=== PATIENT | female | born 1990 | race Caucasian/White ===

== ENCOUNTER 2018-01-01 06:56 | Emergency (ER) | payer MEDICAID, SELFPAY ==
[2018-01-01 06:57] VITALS: BP 106/72; PULSE 100; RESP 20; TEMP 36.4; O2SAT 98; BMI 27.3
--- NOTE | 2018-01-01 07:02 | US_ITS ---
STUDY: ABDOMINAL ULTRASOUND - RIGHT UPPER QUADRANT REASON FOR VISIT: Female, 27 years old. Generalized abdominal pain for 3 days. TECHNIQUE: Ultrasound evaluation of the right upper quadrant was performed with real-time and static anderson-scale imaging. TECHNICAL QUALITY: Adequate. COMPARISON: None. FINDINGS: Liver: The liver measures 13.8 cm. There is normal echogenicity of the liver. The bile ducts are within normal limits. There is hepatic color flow. The direction of portal flow is hepatopetal. There is no demonstrated mass lesion. Gallbladder: Normal distended gallbladder. The gallbladder wall measures 2.9 mm. There is a negative sonographic Henson's sign. There is no pericholecystic fluid. There are no gallstones. Common Bile Duct (C.B.D.): The common bile duct measures 3.6 mm. Pancreas: Normal size of the head, body and tail of the pancreas. There is normal echogenicity of the pancreas. There is no demonstrated pancreatic mass or cyst. Right Kidney: Normal size of the right kidney. The right kidney measures 9.7 x 4.4 x 5.2 cm. Normal renal cortex. The right cortex measures 1.5 cm. There is no demonstrated renal mass or cyst. There is no right hydronephrosis. US/Gallbladder IMPRESSION: Normal right upper quadrant ultrasound examination. Electronically Signed: Krishan Loja MD at 8:27 EDT Tel , Service support ,
--- NOTE | 2018-01-01 07:06 | ED.DCSUM_ITS ---
- ER Visit Summary Date of Service: 01/01/18 Chief Complaint: Abdominal pain History of Present Illness: The patient is a 27 F presents to the emergency department with abdominal pain. Patient's been having symptoms intermittently for the past 3-4 days. States that she will have cramping pain across her upper abdomen. It does seem to be made worse with eating. States that she wakes up with the pain and will be nauseated. Today, she had 2 episodes of vomiting. She states throughout the day, the pain will subside, when she eats again the pain returned. She denies any fevers or chills. She has no prior history of abdominal surgery. She states she has never had pain like this before. There has been no change in bowel habits. She has not found anything that improves the symptoms. Physical Examination: Vital signs reviewed General: Well-nourished, well-developed Head: Normocephalic, atraumatic Eyes: Pupils equal and reactive, extraocular muscles intact Neck, supple, no lymphadenopathy Heart: Regular rate and rhythm Respiratory: No distress, clear bilaterally Abdomen: Soft, mildly tender in the midepigastric area without rebound or guarding, nondistended, no peritoneal signs Back: Nontender Extremities: Nontender, no edema, no cords Skin: Normal color no rash Neuro: Alert and oriented, no focal or lateralizing deficits Test Results: [] Emergency Department Course and Treatment: The patient was tender in the midepigastric area into the right upper quadrant. She did not have a definitive Henson sign. She has been having intermittent pain that was worse with eating. His symptoms were concerning for biliary colic versus gastritis. I did obtain screening labs which are unremarkable. Patient was treated with morphine and Zofran. She had complete resolution of her pain. I did obtain an ultrasound. Her gallbladder does appear to be normal. There is no significant gallbladder wall thickening or dilation of the common bile duct. She was negative. Urine does show some blood, but the patient is currently on her menses. She did have a slight return of her nausea and was retreated with Zofran. At this time, I do feel that this is more likely gastroenteritis. She has begun to have some loose watery diarrhea. I am going to treat the patient with Bentyl and Zofran at home. She continues to have a benign abdomen. She will be discharged home. Treatment Plan: [] Disposition: Discharge Impression: 1. Gastroenteritis 2. Midepigastric abdominal pain This note was generated with [employer] dictation software. It may contain incorrect words, spelling, and punctuation that were not noted in review of the chart prior to signing ED Disposition - Plan for ED Patient: Chief Complaint: Abd Pain Instructions: ED PUD Vs Gastritis Prescriptions: Ondansetron [Zofran Odt] 4 mg PO Q8H PRN PRN #10 tab PRN Reason: Nausea Dicyclomine HCl [Bentyl] 20 mg PO TIDAC #20 cap Referrals: Laxmi Padilla MD [COURTESY STAFF PHYSICIAN] -
[2018-01-01] MEDS: 0.9% Normal Saline 1,000 ML 1000 ML IV (07:10)
[2018-01-01] MEDS: Morphine 4 MG/ML Syringe IV (07:11)
[2018-01-01] MEDS: Ondansetron 4 MG/2 ML Vial IV ×2 (07:11→08:39)
[2018-01-01 07:20] LABS: Absolute Lymphocyte Count 2.95 X10^3/ul (0.83-4.51); Absolute Neutrophil Count 4.2 X10^3/uL (2.0-7.7); Basophil# 0.03 X10^3/uL; Basophil% 0.4 % (0-1); Eosinophil# 0.09 X10^3/uL; Eosinophils% 1.2 % (0-5); Hematocrit 44.1 % (37-47); Hemoglobin 14.6 g/dl (12.0-15.0); Lymphocyte # 2.95 X10^3/ul (4.0); Lymphocyte % 37.9 % (19-41); Mean Corp Hgb Conc 33.1 g/gl (32-36); Mean Corpuscular Hgb 28.3 pg (27.0-32.0); Mean Corpuscular Volume 85.5 fL (81-99); Mean Platelet Vol. 10.6 fl (6.2-12.0); Monocyte# 0.55 X10^3/uL; Monocyte% 7.1 % (0-10); Neutrophil # 4.16 X10^3/uL (2.7-7.7); Neutrophil % 53.3 % (47-70); POSITIVE COUNT NO; POSITIVE DIFFERENTIAL NO; POSITIVE MORPHOLOGY NO; Platelet Count 322 K/mm3 (150-450); RBC Distribution Width CV 13.9 % (11.6-14.6); RBC Distribution Width SD 43.2 fl (35.1-43.9); Red Blood Count 5.16 M/mm3 (4.2-5.4); White Blood Count 7.8 K/mm3 (4.4-11.0)
[2018-01-01 07:33] LABS: AST(SGOT) 11 U/L (15-37); Alanine Aminotransfer ALT/SGPT 14 U/L (13-56); Albumin, Serum 4.6 g/dL (3.2-5.0); Alkaline Phosphatase 80 U/L (45-117); Anion Gap 5 (5-15); BUN 12 mg/dL (7-18); BUN/Creat Ratio 12.9 RATIO (10-20); Bilirubin, Direct 0.07 mg/dL (0.00-0.30); Calcium,Total 9.7 mg/dL (8.5-10.1); Chloride 107 mmol/L (98-107); Creatinine, Serum 0.93 mg/dL (0.55-1.02); EST Glomerular Filtration Rate 77 mL/min (>60); Est Glom Filt Rate - Afr Amer 93 mL/min (>60); Globulin 4.5 g/dL (2.2-4.2); Glucose 79 mg/dL (74-106); Lipase 287 U/L (73-393); Potassium 3.8 mmol/L (3.5-5.1); Protein, Total 9.1 g/dL (6.4-8.2); Sodium Level 137 mmol/L (136-145)
[2018-01-01 08:21] LABS: Bacteria 0 SEEN /hpf (None Seen); Mucous, Urine 0 SEEN /hpf (<or=2+); White Blood Cells 0 SEEN /hpf (0-5)
[2018-01-01 08:22] LABS: Glucose, Dipstick Normal (Normal); Ketone-Dipstick Negative (Negative); Nitrite-Dipstick Negative (Negative); Occult Blood-Urine 250 /ul (Negative); Protein-Dipstick Negative (Negative); Urine Bilirubin Dipstick Negative (Negative); Urine Urobilinogen Normal (Normal); Urine pH 6.5 (5.0 - 8.0)
[2018-01-01 08:25] LABS: Color, Urine Yellow (Yellow); Urine Clarity Clear (Clear)
[2018-01-01 08:30] LABS: Leukocyte Esterase-Dipstick 25 /ul (Negative)
[2018-01-01 08:31] LABS: Internal QC Validated? YES +Cl - CLEAR BKGD; Pregnancy, Urine Negative Negative
[2018-01-01 08:38] LABS: Red Blood Cells-Urine 0-5 SEEN /hpf (0-5); Squamous Epithelial Cells - UA 0-5 SEEN /hpf (5-10)
== END 2018-01-01 08:49 | disposition home or self-care (01) ==
PROVIDERS: Emergency Provider Emergency Medicine
DX: K52.9 Noninfective gastroenteritis and colitis, unspecified (principal); R10.13 Epigastric pain
CPT/HCPCS: 76705; 80048; 80076; 81001; 81025; 83690; 85025; 96361; 96374; 96375; 96376; 99284; J7030; A4216; J2405

== ENCOUNTER → 2018-06-14 16:53 | Outpatient (CLI) | payer MEDICAID, SELFPAY ==
[2018-06-14 17:25] LABS: Absolute Lymphocyte Count 2.66 X10^3/ul (0.83-4.51); Absolute Neutrophil Count 9.7 X10^3/uL (2.0-7.7); Basophil# 0.04 X10^3/uL; Basophil% 0.3 % (0-1); Eosinophil# 0.08 X10^3/uL; Eosinophils% 0.6 % (0-5); Hematocrit 37.1 % (37-47); Hemoglobin 12.6 g/dl (12.0-15.0); Lymphocyte # 2.66 X10^3/ul (4.0); Lymphocyte % 20.1 % (19-41); Mean Corpuscular Hgb 29.6 pg (27.0-32.0); Mean Corpuscular Volume 87.3 fL (81-99); Monocyte# 0.76 X10^3/uL; Monocyte% 5.7 % (0-10); Neutrophil # 9.66 X10^3/uL (2.7-7.7); Neutrophil % 73.1 % (47-70); Platelet Count 297 K/mm3 (150-450); RBC Distribution Width CV 13.6 % (11.6-14.6); RBC Distribution Width SD 42.4 fl (35.1-43.9); Red Blood Count 4.25 M/mm3 (4.2-5.4); White Blood Count 13.2 K/mm3 (4.4-11.0)
[2018-06-14 17:26] LABS: POSITIVE COUNT NO; POSITIVE DIFFERENTIAL NO; POSITIVE MORPHOLOGY NO
[2018-06-14 20:56] LABS: Chlamydia Trachomatis by PCR Negative (Negative); Neisserai gonorrhoeae by PCR Negative (Negative); Probe Check PASS; Sample Adequacy Control PASS; Specimen Processing Control PASS
[2018-06-15 09:39] LABS: HIV - WCH Non-Reactive (Nonreactive)
[2018-06-16 13:45] LABS: HEPATITIS B SURFACE AG Negative (Negative)
[2018-06-17 02:59] LABS: Rapid Plasmin Reagin (RPR) NONREACTIVE (NONREACTIVE)
[2018-06-17 10:20] LABS: HPV Reflexed? NOT INDICATED
== END ==
PROVIDERS: Referring Provider Obstetrics & Gynecology; Visit Provider Obstetrics & Gynecology
DX: Z34.90 Encounter for supervision of normal pregnancy, unspecified, unspecified trimester (principal); Z12.4 Encounter for screening for malignant neoplasm of cervix
CPT/HCPCS: 36415; 85025; 86592; 86703; 86762; 86850; 86900; 87086; 87088; 87340; 87491; 87591; 88175; G0145

== ENCOUNTER 2018-07-31 15:18 | Emergency (ER) | payer MEDICAID, SELFPAY ==
[2018-07-31 15:19] VITALS: BP 112/75; PULSE 98; RESP 18; TEMP 36.3; O2SAT 100; BMI 25.6
[2018-07-31] MEDS: Acetaminophen 325 MG Tablet 650 MG PO (15:41)
--- NOTE | 2018-07-31 15:47 | ED.DCSUM_ITS ---
- ER Visit Summary Date of Service: 07/31/18 Chief Complaint: [Back pain] History of Present Illness: The patient is a 27 F [ presents the emergency department complaint that started today around 10 AM. Patient states that she had lifted in place for 1-year-old and a walker when the pain became severe.] P atient states the pain is from the mid back down to the low back across the entire back. Pain is made worse by moving. She denies any radiation into her legs. Patient denies any numbness or tingling in extremities. She denies any change in bowel or bladder function. Patient denies any fever. Patient is currently 13 weeks and she is . She denies any vaginal bleeding. She denies any dysuria. Patient has had an ultrasound with this which did show an intrauterine . Physical Examination: [HEENT-PERRLA, EOMI. Cranial nerves II through XII grossly intact. TMs clear. Mucous membranes moist. No adenopathy. Cardiovascular-regular rate and rhythm without murmur or ectopy Lungs-clear to auscultation, chest wall stable without crepitus or subcu emphysema Abdomen-normoactive bowel sounds, soft, nontender, no rebound or rigidity, no peritoneal signs. Back exam-patient has diffuse tenderness to palpation over the lower thoracic an d diffuse lumbar paraspinal musculature bilaterally. Deep tendon reflexes are plus 2 out of 4 bilaterally at the patella and Achilles. Patient has normal L5 extension bilaterally. Patient has normal sensation to light touch. Extremities-intact ?4, normal range of motion, normal pulses, atraumatic] Test Results: [Urinalysis obtained at 500 leukocyte esterase, 10-25 WBCs, 10-25 epis, and +1 bacteria. Urine was sent for culture. heart tones were 150.] Emergency Department Course and Treatment: [Patient was medicated with Tylenol and Flexeril as well as Macrobid.] Treatment Plan: [Patient will be started on Flexeril and Macrobid and advised to follow-up with her [employer] within next 5-7 days.] Disposition: [Discharged home in stable condition. Patient advised to return if fever, vomiting, worsening pain, weakness in extremities, change of bowel or bladder function, or condition should worsen anyway.] Impression: [Lumbar strain UTI] This note was generated with [employer] software. It may contain incorrect words, spelling, and punctuation that were not noted in review of the chart prior to signing ED Disposition - Plan for ED Patient: Chief Complaint: Back Referrals: Care Physician,No Primary [Primary Care Provider] -
[2018-07-31 16:17] LABS: Mucous, Urine 0 SEEN /hpf (<or=2+); Red Blood Cells-Urine 0 SEEN /hpf (0-5)
[2018-07-31 16:22] LABS: Color, Urine Yellow (Yellow); Glucose, Dipstick Normal (Normal); Ketone-Dipstick Negative (Negative); Leukocyte Esterase-Dipstick 500 /ul (Negative); Nitrite-Dipstick Negative (Negative); Occult Blood-Urine 25 /ul (Negative); Protein-Dipstick 15 mg/dl (Negative); Specific Gravity, Urine 1.025 (1.002-1.030); Urine Bilirubin Dipstick Negative (Negative); Urine Clarity Sl. Cloudy (Clear); Urine Urobilinogen 1 mg/dl (Normal)
[2018-07-31 16:31] LABS: Squamous Epithelial Cells - UA 10-25 SEEN /hpf (5-10); White Blood Cells 10-25 SEEN /hpf (0-5)
[2018-07-31 16:32] LABS: Bacteria 1+ /hpf (None Seen)
--- NOTE | 2018-07-31 16:37 | ED.DEP ---
ED Disposition - Plan for ED Patient: Chief Complaint: Back Instructions: ED Sprain Strain Lumbar, ED UTI Cystitis Female Prescriptions: Nitrofurantoin Macrocrystals [Macrobid] 100 mg PO Q12 #14 cap Cyclobenzaprine [Flexeril] 10 mg PO TID PRN #20 tab PRN Reason: Muscle Spasm Referrals: Care Physician,No Primary [Primary Care Provider] - Julia Wyatt MD [STAFF PHYSICIAN] - 5-7 Days
[2018-07-31] MEDS: Nitrofurantoin Macrocrystals 100 MG Capsule PO (16:45)
== END 2018-07-31 16:47 | disposition home or self-care (01) ==
LOC: ED 15:37
PROVIDERS: Emergency Provider Emergency Medicine
DX: O9A.211 Injury, poisoning and certain other consequences of external causes complicating pregnancy, first trimester (principal); Z3A.13 13 weeks gestation of pregnancy; S39.012A Strain of muscle, fascia and tendon of lower back, initial encounter; X50.9XXA Other and unspecified overexertion or strenuous movements or postures, initial encounter; Y93.9 Activity, unspecified; Y92.9 Unspecified place or not applicable; O23.41 Unspecified infection of urinary tract in pregnancy, first trimester
CPT/HCPCS: 81001; 87086; 87088; 99283

== ENCOUNTER → 2018-11-07 09:25 | Outpatient (CLI) | payer MEDICAID, SELFPAY ==
[2018-11-07 09:22] VITALS: BMI 27.8
[2018-11-07 10:13] LABS: Absolute Lymphocyte Count 1.51 X10^3/ul (0.83-4.51); Absolute Neutrophil Count 5.9 X10^3/uL (2.0-7.7); Basophil# 0.03 X10^3/uL; Basophil% 0.4 % (0-1); Eosinophil# 0.04 X10^3/uL; Eosinophils% 0.5 % (0-5); Hemoglobin 10.7 g/dl (12.0-15.0); Lymphocyte # 1.51 X10^3/ul (4.0); Lymphocyte % 18.9 % (19-41); Mean Corp Hgb Conc 32.4 g/gl (32-36); Mean Corpuscular Hgb 29.3 pg (27.0-32.0); Mean Corpuscular Volume 90.4 fL (81-99); Mean Platelet Vol. 10.1 fl (6.2-12.0); Monocyte# 0.51 X10^3/uL; Monocyte% 6.4 % (0-10); Neutrophil # 5.86 X10^3/uL (2.7-7.7); Neutrophil % 73.5 % (47-70); Platelet Count 261 K/mm3 (150-450); RBC Distribution Width CV 13.6 % (11.6-14.6); RBC Distribution Width SD 43.7 fl (35.1-43.9); Red Blood Count 3.65 M/mm3 (4.2-5.4)
[2018-11-07 10:14] LABS: POSITIVE COUNT NO; POSITIVE DIFFERENTIAL NO; POSITIVE MORPHOLOGY NO
[2018-11-07 10:19] LABS: Glucose Challenge Gest 1H 50g 83 mg/dL (70-140)
== END ==
PROVIDERS: Visit Provider Nurse Practitioner Women's Health
DX: O09.90 Supervision of high risk pregnancy, unspecified, unspecified trimester (principal)
CPT/HCPCS: 36415; 82950; 85025

== ENCOUNTER 2018-12-19 09:47 | Outpatient (CLI) | payer MEDICAID, SELFPAY ==
[2018-12-19 09:33] VITALS: BMI 27.8
--- NOTE | 2018-12-19 10:06 | US_ITS ---
STUDY: OBSTETRICAL ULTRASOUND - BIOPHYSICAL PROFILE REASON FOR EXAM: Female, 28 years old. well-being. LMP: April 19, 2018 PRIOR ULTRASOUND: None. TECHNIQUE: TECHNICAL QUALITY: Adequate. FINDINGS: There is a single intrauterine fetus. The fetus is in a cephalic presentation. There is demonstrated cardiac activity with a heart rate of 136 bpm. There is a normal amniotic fluid volume. The largest amniotic fluid pocket measures 5.0 cm x 2.6 cm. The amniotic fluid index (DAVID) is 14.01 cm. The placenta is anterior in location and is not low lying. There are Grade 0 placental changes. BIOPHYSICAL PROFILE: Breathing Movements (FBM): 0 Gross Body Movements (GBM): 2 Tone (FT): 2 Amniotic Fluid Volume (AFV): 2 TOTAL SCORE: 6 / 8 US/Biophysical Profile IMPRESSION: biophysical profile of 6/8. The referring physician's office was notified. Electronically Signed: Indio Paris, at 15:30 EDT , Service support ,
[2018-12-19 10:17] VITALS: BMI 32.0
--- NOTE | 2018-12-19 14:23 | OB.TRI.PN ---
Progress Notes Date of Service: 12/19/18 Progress Note: patient seent due to variable decel in the office fhts 130s moderate variability reactive no decels cat I tracing toco no regular a/p: variable decel- 6/8 BPP 2 off for breathing, reactive nst. dc home kick counts repeat bpp in 24 hours.
== END 2018-12-19 12:15 | disposition home or self-care (01) ==
LOC: WPOUT 10:02 → OBT 10:02
PROVIDERS: Referring Provider Obstetrics & Gynecology; Visit Provider Obstetrics & Gynecology
DX: O76 Abnormality in fetal heart rate and rhythm complicating labor and delivery (principal)
CPT/HCPCS: 59025; 59050; 76818; 99218; G0378

== ENCOUNTER → 2018-12-20 | Outpatient (CLI) | payer MEDICAID, SELFPAY ==
[2018-12-19 10:17] VITALS: BMI 32.0
--- NOTE | 2018-12-20 14:35 | US_ITS ---
STUDY: OBSTETRICAL ULTRASOUND - BIOPHYSICAL PROFILE REASON FOR EXAM: Female, 28 years old. well being. LMP: April 19, 2018. PRIOR ULTRASOUND: Comparison is made with prior examination dated December 19, 2018. TECHNIQUE: Transabdominal TECHNICAL QUALITY: Adequate. FINDINGS: There is a single intrauterine fetus. The fetus is in a cephalic presentation. There is demonstrated cardiac activity with a heart rate of 142 bpm. There is a normal amniotic fluid volume. The largest amniotic fluid pocket measures 2.7 cm x 6.4 cm. The amniotic fluid index (DAVID) is 12.07 cm. The placenta is There are Grade 0 placental changes. BIOPHYSICAL PROFILE: Breathing Movements (FBM): 2 Gross Body Movements (GBM): 2 Tone (FT): 2 Amniotic Fluid Volume (AFV): 2 TOTAL SCORE: US/Biophysical Prof W/O Non Stres IMPRESSION: Normal biophysical profile of 04/20. Electronically Signed: Indio Paris, at 11:24 EDT , Service support ,
== END | disposition home or self-care (01) ==
LOC: US 14:34
PROVIDERS: Referring Provider Obstetrics & Gynecology; Visit Provider Obstetrics & Gynecology
DX: O36.8390 Maternal care for abnormalities of the fetal heart rate or rhythm, unspecified trimester, not applicable or unspecified (principal)
CPT/HCPCS: 76819

== ENCOUNTER → 2018-12-27 18:17 | Outpatient (CLI) | payer MEDICAID, SELFPAY ==
[2018-12-27 10:43] VITALS: BMI 32.0
== END ==
PROVIDERS: Referring Provider Obstetrics & Gynecology; Visit Provider Obstetrics & Gynecology
DX: O09.90 Supervision of high risk pregnancy, unspecified, unspecified trimester (principal); Z87.59 Personal history of other complications of pregnancy, childbirth and the puerperium
CPT/HCPCS: 87081

== ENCOUNTER → 2019-01-11 | Outpatient (CLI) | payer MEDICAID, SELFPAY ==
[2019-01-11 11:03] VITALS: BMI 32.0
[2019-01-11 12:29] LABS: Absolute Neutrophil Count 8.1 X10^3/uL (2.0-7.7); Basophil# 0.02 X10^3/uL; Basophil% 0.2 % (0-1); Eosinophil# 0.05 X10^3/uL; Eosinophils% 0.5 % (0-5); Hematocrit 31.9 % (37-47); Hemoglobin 10.1 g/dl (12.0-15.0); Lymphocyte % 18.2 % (19-41); Mean Corp Hgb Conc 31.7 g/gl (32-36); Mean Corpuscular Hgb 26.8 pg (27.0-32.0); Mean Corpuscular Volume 84.6 fL (81-99); Mean Platelet Vol. 10.9 fl (6.2-12.0); Monocyte# 0.83 X10^3/uL; Monocyte% 7.5 % (0-10); Neutrophil # 8.05 X10^3/uL (2.7-7.7); Neutrophil % 73.1 % (47-70); Platelet Count 330 K/mm3 (150-450); RBC Distribution Width SD 45.2 fl (35.1-43.9); Red Blood Count 3.77 M/mm3 (4.2-5.4)
[2019-01-11 12:58] LABS: POSITIVE COUNT NO; POSITIVE DIFFERENTIAL NO; POSITIVE MORPHOLOGY NO
== END | disposition home or self-care (01) ==
PROVIDERS: Referring Provider Nurse Practitioner Women's Health; Visit Provider Nurse Practitioner Women's Health
DX: O99.019 Anemia complicating pregnancy, unspecified trimester (principal); D64.9 Anemia, unspecified; Z3A.00 Weeks of gestation of pregnancy not specified
CPT/HCPCS: 36415; 85025

== ENCOUNTER 2019-01-18 12:00 | Inpatient (IN) | payer MEDICAID, SELFPAY ==
[2019-01-17 09:04] VITALS: BMI 32.0
[2019-01-18] MEDS: Lactated Ringers 1,000 ML 50 ML IV ×3 (13:05→15:24)
[2019-01-18 13:10] VITALS: BMI 32.5
[2019-01-18 13:23] LABS: Absolute Lymphocyte Count 1.87 X10^3/ul (0.83-4.51); Absolute Neutrophil Count 11.7 X10^3/uL (2.0-7.7); Basophil# 0.02 X10^3/uL; Basophil% 0.1 % (0-1); Eosinophil# 0.05 X10^3/uL; Eosinophils% 0.3 % (0-5); Hematocrit 32.3 % (37-47); Hemoglobin 10.3 g/dl (12.0-15.0); Lymphocyte # 1.87 X10^3/ul (4.0); Mean Corp Hgb Conc 31.9 g/gl (32-36); Mean Corpuscular Hgb 26.7 pg (27.0-32.0); Mean Corpuscular Volume 83.7 fL (81-99); Mean Platelet Vol. 10.4 fl (6.2-12.0); Monocyte# 0.68 X10^3/uL; Monocyte% 4.7 % (0-10); Neutrophil # 11.68 X10^3/uL (2.7-7.7); Neutrophil % 81.6 % (47-70); Platelet Count 309 K/mm3 (150-450); RBC Distribution Width CV 15.2 % (11.6-14.6); Red Blood Count 3.86 M/mm3 (4.2-5.4); White Blood Count 14.4 K/mm3 (4.4-11.0)
[2019-01-18 13:29] LABS: POSITIVE COUNT NO; POSITIVE DIFFERENTIAL NO; POSITIVE MORPHOLOGY NO
[2019-01-18] MEDS: fentaNYL-bupivacaine (epidural) 100 ML BAG EPIDURAL (14:19)
[2019-01-18] MEDS: Oxytocin 30 units/NS 500 ml 30 UNITS/500 ML IV.SOLN 334 UNITS IV (16:02)
--- NOTE | 2019-01-18 16:09 | HP.PCM_ITS ---
- Problem List (1) Active labor at term Status: Acute (2) Anemia affecting Status: Acute Qualifiers: Comment: check at 36 weeks (3) H/O loss Status: Acute Comment: 18 week anhydramnios PPROM, likely nonrecurring, recommend growth us q4 weeks after 28 weeks (4) Status: Acute Qualifiers: Comment: genetic, carrier, and ntd screening declined. MFM anatomy US normal, FU US for cervix length- cervix measured 5 cm. (5) Supervision of high-risk Status: Acute Qualifiers: Comment: PRR ANUPAM 01/24/18 boy Georgina Senior (dominick) Js History and Physical Vital Signs 01/17/19 Body Mass Index (BMI) 32.0 01/17/19 Height 5 ft 4 in 01/17/19 Weight: 191 lb 6 oz 01/17/19 Body Mass Index (BMI) 32.8 01/17/19 Blood Pressure 98/72 Intake Visit Reasons: 39 WK OB/NST Chief Complaint: est ob,nst Shirrer Required: No Is patient in pain?: No Allergies sulfamethoxazole [From Bactrim] Allergy (Verified 01/17/19 09:03) Rash trimethoprim [From Bactrim] Allergy (Verified 01/17/19 09:03) Rash Medications Pnv No.121/Iron/Folic Acid [ Multivitamin Tablet] 1 ea PO DAILY 07/31/18 [History Confirmed 01/17/19] Last Menstral Period: 04/19/18 Zika: Zika virus screening: Negative : No PFSH PFSH Surgical History H/O dilation and curettage (Acute) History of wisdom tooth extraction, class II edentulism (Acute) left breast cyst removal (Acute) Family History Grandmother Diabetes Social History Smoking Status: Former smoker alcohol intake: never substance use type: does not use caffeine: Yes what type of physical activity do you participate in: none seatbelt use: always do you feel safe at home: Yes additional social history: Js works at [employer] in [place] Pregancy History 4 Elective abortions Hx Para 2 Spontaneous abortions Hx # Term Pregnancies Ectopic pregnancies Hx # Pregnancies Multiple births # of living children Past Pregnancies Del. Date Name GA/Weeks Outcome Route Bth Weight Gen Labor Lgth Anesthesia Del Locatn Provider FOB Unknown Js Arauz 2008 live - full term Male Bare Unknown 2016 Georgina live - full term Male TERRELL HPI 39 WK OB/NST: Details: GINI RAMOS is a 28 year old @ 38w6d IAL. she denies any vb or lof admits good fm and regular ctx for the last few hours. ACOG First Trimester First Trimester: Second Trimester Second Trimester: Signs and Symptoms of Labor, Selecting a care provider, Reproductive Life Planning, Care Planning, Tobacco Cessation, Depression/Anxiety and Intimate Partner Violence Third Trimester Third Trimester: Pain Management Plans, Labor support person(s), Immediate Larc, Movement Monitoring and Infant Feeding Yes ; discussed Trial of Labor after Counseling or discussed Circumcision pre ference Diagnostics Diagnostics Labs Hct 31.9 % (37-47) L 01/11/19 Hgb 10.1 g/dl (12.0-15.0) L 01/11/19 Details: HIV: Urine Culture: Sequential Screen: NIPT Screen: ROS Const Reports system reviewed and no additional complaints, except as docu Card Reports system reviewed and no additional complaints, except as docu Resp Reports system reviewed and no additional complaints, except as docu GI Reports system reviewed and no additional complaints, except as docu, Reports nausea Reports system reviewed and no additional complaints, except as docu Musc Reports system reviewed and no additional complaints, except as docu Exam Const General: cooperative, healthy appearing, comfortable, anxious [facility] Head: normal to inspection Nose: external nose normal Face and sinus: normal facial exam Neck Neck: normal visual inspection, full ROM, no lymphadenopathy Thyroid: thyroid normal Chest Chest palpation & inspection: normal inspection of the chest Resp Effort & Inspection: normal respiratory effort GI Inspection: normal to inspection Palpation: soft, other (gravid uterus) Other: infant vertex and appropriate size for gestational age Other: Cervical Exam: Extrem General: pedal edema Office Procedures OB NST Non-Stress Test Indications for Monitoring: Yes other Heart Rate Baseline: 130 Heart Rate Variability: moderate Movement: Present Heart Rate Accelerations: Present Decelerations: Absent Contractions: Absent Impression: Yes Reactive Non-Stress Test Category 1 Results [id number] Office Urine Glucose Negative Last Edit by Sadia Vaz on 01/17/19 09:09 Office Urine Protein Negative Last Edit by Sadia Vaz on 01/17/19 09:09 Assessment & Plan Problems term active labor 5. H/O loss Z87.59 6. 39 weeks gestation of Z3A.39 7. Supervision of high risk in third trimester O 8. Anemia affecting in third trimester O99.013 Plan presents IAL- exp management epidural PRN Orders Orders: OB NST Today O POC Urinalysis 2 Dip (Clinic) Today Plan Detail Goals Decrease pain and spasm Improve ability to carry child and climb stairs Coding Level of Care Code Off vis,est,level 3 Diagnoses Segmental and somatic dysfunction of thoracic region M99.02 Segmental and somatic dysfunction of pelvic region M99.05 Segmental and somatic dysfunction of sacral region M99.04 Segmental and somatic dysfunction of lumbar region M99.03 H/O loss Z87.59 39 weeks gestation of Z3A.39 ??Weeks of gestation: 39 weeks Supervision of high risk in third trimester O ??Trimester: third trimester Anemia affecting in third trimester O99.013 ??Trimester: third trimester Additional Codes Non-Stress Test (13913)
--- NOTE | 2019-01-18 16:09 | PCM.OPRPT ---
Problem List (1) Active labor at term Status: Acute (2) Anemia affecting Status: Acute Qualifiers: Comment: check at 36 weeks (3) H/O loss Status: Acute Comment: 18 week anhydramnios PPROM, likely nonrecurring, recommend growth us q4 weeks after 28 weeks (4) Status: Acute Qualifiers: Comment: genetic, carrier, and ntd screening declined. MFM anatomy US normal, FU US for cervix length- cervix measured 5 cm. (5) Supervision of high-risk Status: Acute Qualifiers: Comment: PRR ANUPAM 01/24/18 boy Georgina Senior (dominick) Js Vaginal Delivery Maternal Presentation: Active Labor 38w6d IAL Amniotic Membrane Rupture Type: Spontaneous Amniotic Fluid Description: Clear Final ANUPAM: 01/26/19 Gestational age: 38 Weeks and 6 Days Date of Procedure: 01/18/19 Pre-Operative Diagnosis: ial Post-Operative Diagnosis: same Surgery/ Procedure Performed: Spontaneous Vaginal Delivery Type of Anesthesia: Epidural Description of Procedure: Patient began pushing and delivered the head in the JUAN DAVID presentation. The head was delivered atraumatically. The anterior and posterior shoulders delivered without complication followed by the rest of the and the infant was placed on the maternal abdomen. Delayed cord clamping was employed for approximately 60 seconds. Cord was clamped and cut and gentle traction was applied to the cord and the placenta delivered spontaneously immediately following it was noted to be intact with three-vessel cord. The perineum and vagina were inspected and noted to have first-degree perineal laceration that was repaired in the usual fashion with 3-0 Vicryl repeat. EBL was 100 cc. Patient and tolerated delivery well. Presentation: JUAN DAVID Placental Delivery Description: Spontaneous Placenta Disposition: [facility] Cord Vessel Description: 3 Vessels Cord Entanglement: None Estimated Blood Loss: 100 Infant A gender: Male Episiotomy Description: None Laceration: Perineal Extension/lac, 1st degree Medications given after delivery: IV Pitocin Complications: None
[2019-01-18] MEDS: Oxytocin 30 units/NS 500 ml 30 UNITS/500 ML IV.SOLN 167 UNITS IV (16:32)
[2019-01-18 19:25] VITALS: BP 114/62; PULSE 113; RESP 16; TEMP 36.8
[2019-01-18 23:05] VITALS: BP 118/62; PULSE 78; RESP 18; TEMP 36.2; O2SAT 98
[2019-01-18] MEDS: Naproxen 250 MG Tablet 500 MG PO (23:25)
[2019-01-19 03:00] VITALS: BP 94/58; PULSE 80; RESP 18; TEMP 36.5
[2019-01-19] MEDS: Acetaminophen 500 MG Tablet 1000 MG PO (04:36)
[2019-01-19] MEDS: Senna/Docusate Sodium 1 Tablet PO (04:37)
--- NOTE | 2019-01-19 07:29 | PCM.PN.OB ---
Patient Problems: Active and Suspected Problems (Last Reviewed 01/17/19 @ 09:04 by Sadia Vaz) Active labor at term (Acute) Subjective: doing well no complaints pain controlled no CP SOB N V ambulating well tolerating po lochia moderate, going well - Physical Exam General: Alert, Oriented x3 Abdomen: Soft, Non Tender, - - FF below U Vital Signs Temp Pulse Resp BP Pulse Ox 97.7 F L 80 18 94/58 L 98 01/19/19 03:00 01/19/19 03:00 01/19/19 03:00 01/19/19 03:00 01/18/19 23:05 Oxygen Delivery Method Room Air Weight: 190 lb Body Mass Index (BMI) 32.5 Intake and Output for Last 24 Hours 01/17/19 01/18/19 01/19/19 23:59 23:59 23:59 Intake Total 2660 / 2660 Output Total 1500 / 1500 Balance 1160 / 1160 Laboratory Tests Past 24 Hrs 01/18/19 01/18/19 12:25 13:05 WBC 14.4 H RBC 3.86 L Hgb 10.3 L Hct 32.3 L MCV 83.7 MCH 26.7 L MCHC 31.9 L RDW 15.2 H RDW Differential 46.0 H Plt Count 309 MPV 10.4 Immature Gran % (Auto) 0.300 Neut % (Auto) 81.6 H Lymph % (Auto) 13.0 L Mitchell % (Auto) 4.7 Eos % (Auto) 0.3 Baso % (Auto) 0.1 Absolute Neuts (auto) 11.7 H Absolute Lymphs (auto) 1.87 Total Counted Not Reportable Blood Type A POSITIVE Antibody Screen NEGATIVE Medical Necessity - Tobacco Use Smoking Status: Former smoker Assessment/Plan All Active Problems (Last Reviewed 01/17/19 @ 09:04 by Sadia Vaz) Active labor at term (Acute) Segmental and somatic dysfunction of thoracic region (Acute) Anemia affecting (Acute) Segmental and somatic dysfunction of pelvic region (Acute) Segmental and somatic dysfunction of sacral region (Acute) Segmental and somatic dysfunction of lumbar region (Acute) H/O loss (Acute) (Acute) Supervision of high-risk (Acute) Normal delivery at term (Resolved) s/p PPD # 1 1. routine post delivery care 2. breast feeding- support given 3. rh positive 4. rubella immune
[2019-01-19 08:50] VITALS: BP 100/52; PULSE 70; RESP 14; TEMP 36.6; O2SAT 98
[2019-01-19] MEDS: Naproxen 250 MG Tablet 500 MG PO ×2 (10:10→19:41)
[2019-01-19] MEDS: Prenatal Vits Tablet 1 TABLET PO (10:11)
[2019-01-19 11:38] VITALS: BP 106/50; PULSE 80; RESP 16; TEMP 36.8
[2019-01-19 17:33] VITALS: BP 104/64; PULSE 72; RESP 16; TEMP 36.6
[2019-01-19 19:42] VITALS: BP 103/53; PULSE 77; RESP 16; TEMP 36.8
[2019-01-20 03:10] VITALS: BP 92/37; PULSE 69; RESP 15; TEMP 36.7; O2SAT 98
[2019-01-20 08:57] VITALS: BP 107/49; PULSE 91; RESP 16; TEMP 36.7
--- NOTE | 2019-01-20 10:32 | CASEMGMT ---
Social Work Assessment Labor and Delivery Unit Date of Referral: 01/20/19 Time of Referral: 9:44am Referred By: Dr. Wyatt Date of Intervention: 01/20/19 Time of Intervention: 10:05am Reason for Referral: History of Depression History Obtained from: MOB and FOB Household composition: MOB, FOB, siblings Caesar Arauz(born 2008) and Georgina(born 2017), Baby will sleep in room w/parents initially in playpen w/insert. Baby's parent/guardian status: MOB and FOB, Js and Abigail Walters, are the parents. They have been together since high school, they state 15-16 years. Relevant Medical history: MOB: high risk , anemia, h/o loss. Appropriate care. No tox screen completed on this admission. Baby: Born 01/18/19, 15:58, 7 lb 2 oz, apgars 8(1 minute) and 9(5 minutes). No tox screen completed. Baby's pictures editor will be Dr. Rebolledo, MOB set up appt on Wednesday. Educational Status: MOB graduated high school, FOB has GED. 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 Infant supplies: MOB and FOB report to have all needed supplies including diapers, clothing, bottles, car seats, pack n play with insert. Childcare/Caregivers/Support systems: MOB plans to stay home, MOB and FOB report a lot of support on both sides including baby's grandparents, aunts and uncles. Transportation: No transportation issues Programs/Agencies involved: [facility] Children Services/Legal Issues: None Behavioral Health Issues: Mental Health history: MOB reports depression after of their first child in 2008. She relates it to more having difficulty breast feeding. FOB states she felt like she was feeling badly about herself and ability to parent because of this. MOB reports this lasted only for a couple of weeks. MOB reports no history of depression otherwise, no recurrences of after Georgina in 2016. MOB did not seek any counseling for the at the time of the occurrence. Substance Abuse/Family history: No history reported by MOB or FOB in regard to substance abuse of any type. FOB reports that grandfathers on either side have difficulty w/alcohol so MOB and FOB don't even go there, as they are aware of their family history. Drug screens: Not ordered Depression and Anxiety/Shaken Baby/Safe Sleeping: SW reviewed with and gave information on depression/anxiety, shaken baby and safe sleeping to MOB. SW also gave MOB resources for counseling should she need it, including the 24 hour hotline to call if needed. Assessment: SW met w/MOB and FOB in room, reviewed history, in particular history around depression. SW gave MOB resources for depression, list of mental health agencies w/24 hour hotline number. MOB reports to be feeling good, reports no depression at this time. SW did review w/MOB and FOB warning signs of and advised her if she or FOB starts to see these warning signs, to follow up w/PCP or w/counseling. MOB and FOB state understanding. MOB during conversation, attentive to baby and also engaged in conversation, good eye contact. FOB also engaged in conversation. Both MOB and FOB very appropriate. No concerns at this time. Plan: Baby home w/parents, MOB has resources for depression if needed. No further needs at this time. MARÍA Palomo
--- NOTE | 2019-01-20 12:02 | PCM.PN.OB ---
Patient Problems: Active and Suspected Problems (Last Reviewed 01/17/19 @ 09:04 by Sadia Vaz) Active labor at term (Acute) Subjective: doing well no complaints pain controlled no CP SOB N V ambulating well tolerating po lochia moderate, going well - Physical Exam General: Alert, Oriented x3 Vital Signs Temp Pulse Resp BP Pulse Ox 98.1 F 91 16 107/49 L 98 01/20/19 08:57 01/20/19 08:57 01/20/19 08:57 01/20/19 08:57 01/20/19 03:10 Oxygen Delivery Method Room Air Weight: 190 lb Body Mass Index (BMI) 32.5 Intake and Output for Last 24 Hours 01/18/19 01/19/19 01/20/19 23:59 23:59 23:59 Intake Total 2660 / 2660 Output Total 1500 / 1500 Balance 1160 / 1160 Medical Necessity - Tobacco Use Smoking Status: Former smoker Assessment/Plan All Active Problems (Last Reviewed 01/17/19 @ 09:04 by Sadia Vaz) Active labor at term (Acute) Segmental and somatic dysfunction of thoracic region (Acute) Anemia affecting (Acute) Segmental and somatic dysfunction of pelvic region (Acute) Segmental and somatic dysfunction of sacral region (Acute) Segmental and somatic dysfunction of lumbar region (Acute) H/O loss (Acute) (Acute) Supervision of high-risk (Acute) Normal delivery at term (Resolved) s/p PPD # 2 1. routine post delivery care 2. breast feeding- support given 3. rh positive 4. rubella immune
--- NOTE | 2019-01-20 12:03 | DCINST_ITS ---
Discharge Diet: No Restrictions Discharge Activity: Return to Normal Activity, May not drive while taking narcotic pain medications., May Shower May resume sexual activity in: 4-6 weeks Call your doctor if your incision/area has: Continuous Slow Oozing, Sudden Increased Bleeding, Increased Pain/ Swelling, Increased Redness, Foul Smelling Discharge Additional Instructions: If you experience any of the following, contact your healthcare provider. * Bleeding that soaks a pad every hour for 2 hours * Fever 100.4 or higher * Unrelieved incision or abdominal pain * Swelling, redness, discharge or bleeding from your incision or episiotomy site * Your incision begins to separate * Problems urinating (including inability to urinate or burning while urinating). * Visual changes * Severe headache * Flu-like symptoms * Pain or redness in one of both of your breasts * Pain, warmth, tenderness or swelling in your legs, especially the calf area * Frequent nausea and vomiting * Symptoms of depression or anxiety If you experience any of the following, call 911 or go to the nearest Emergency Room. * Chest pain * Problems breathing * Seizure activity * Partial or complete paralysis of a body part, slurred speech, weakness or drooping of the face, or a sudden inability to walk or hold your balance Allergies/Adverse Reactions: Allergies sulfamethoxazole [From Bactrim] Allergy (Verified 01/17/19 09:03) Rash trimethoprim [From Bactrim] Allergy (Verified 01/17/19 09:03) Rash Medications to take at Discharge Pnv No.121/Iron/Folic Acid [ Multivitamin Tablet] 1 ea PO DAILY 07/31/18 Please Follow Up With: Julia Wyatt MD - [phone] When: Call to make an appointment with your doctor in 6 weeks. If you had elevated Blood pressure or 4th degree laceration you will need to be seen in 2 weeks. Primary Care Physician: Care Physician,No Primary [Primary Care Provider] - Test Results: Test results from this visit will be discussed in further detail at your follow- up appointment, if applicable.
--- NOTE | 2019-01-20 12:03 | PCM.DCVAG ---
Discharge Diet: No Restrictions Discharge Activity: Return to Normal Activity, May not drive while taking narcotic pain medications., May Shower May resume sexual activity in: 4-6 weeks Call your doctor if your incision/area has: Continuous Slow Oozing, Sudden Increased Bleeding, Increased Pain/ Swelling, Increased Redness, Foul Smelling Discharge Additional Instructions: If you experience any of the following, contact your healthcare provider. Bleeding that soaks a pad every hour for 2 hours Fever 100.4 or higher Unrelieved incision or abdominal pain Swelling, redness, discharge or bleeding from your incision or episiotomy site Your incision begins to separate Problems urinating (including inability to urinate or burning while urinating). Visual changes Severe headache Flu-like symptoms Pain or redness in one of both of your breasts Pain, warmth, tenderness or swelling in your legs, especially the calf area Frequent nausea and vomiting Symptoms of depression or anxiety If you experience any of the following, call 911 or go to the nearest Emergency Room. Chest pain Problems breathing Seizure activity Partial or complete paralysis of a body part, slurred speech, weakness or drooping of the face, or a sudden inability to walk or hold your balance Allergies/Adverse Reactions: Allergies sulfamethoxazole [From Bactrim] Allergy (Verified 01/17/19 09:03) Rash trimethoprim [From Bactrim] Allergy (Verified 01/17/19 09:03) Rash Medications to take at Discharge Pnv No.121/Iron/Folic Acid [ Multivitamin Tablet] 1 ea PO DAILY 07/31/18 Please Follow Up With: Julia Wyatt MD - [phone] When: Call to make an appointment with your doctor in 6 weeks. If you had elevated Blood pressure or 4th degree laceration you will need to be seen in 2 weeks. Primary Care Physician: Care Physician,No Primary [Primary Care Provider] - Test Results: Test results from this visit will be discussed in further detail at your follow-up appointment, if applicable.
--- NOTE | 2019-01-25 18:51 | NURSING ---
Tried follow up phone call, phone number not a working number.
== END 2019-01-20 12:45 | disposition home or self-care (01) | DRG 560 ==
PROVIDERS: Admitting Provider Obstetrics & Gynecology; Referring Provider Obstetrics & Gynecology; Visit Provider Obstetrics & Gynecology
DX: O99.02 Anemia complicating childbirth (principal); D64.9 Anemia, unspecified; M99.03 Segmental and somatic dysfunction of lumbar region; M99.05 Segmental and somatic dysfunction of pelvic region; M99.04 Segmental and somatic dysfunction of sacral region; M99.02 Segmental and somatic dysfunction of thoracic region; Z3A.38 38 weeks gestation of pregnancy; Z37.0 Single live birth; Z87.891 Personal history of nicotine dependence; O70.0 First degree perineal laceration during delivery
CPT/HCPCS: 59025; 59050; 85025; 86850; 86900; 99218; J7120; G0378

== ENCOUNTER 2019-03-30 06:07 | Day surgery (SDC) | payer MEDICAID, SELFPAY ==
[2019-03-23 17:42] VITALS: BMI 32.5
--- NOTE | 2019-03-24 04:10 | PCM.HPOB.BLA ---
- Problem List (1) Sterilization Status: Acute Comment: laparoscopic bilateral salpingectomy History and Physical Date of Admission: 03/30/19 Intake Vital Signs 03/23/19 Body Mass Index (BMI) 32.5 03/23/19 Height 5 ft 4 in 03/23/19 Weight: 140 lb 8 oz 03/23/19 Body Mass Index (BMI) 24.1 03/23/19 Blood Pressure 116/76 Intake Visit Reasons: pre op LBS Saw Edge Fuser Circular Required: No Is patient in pain?: No Allergies sulfamethoxazole [From Bactrim] Allergy (Verified 03/23/19 17:21) Rash trimethoprim [From Bactrim] Allergy (Verified 03/23/19 17:21) Rash Medications NK 03/02/19 [History Confirmed 03/23/19] Post menopausal: No Patient : No : No PFSH Surgical History H/O dilation and curettage (Acute) History of wisdom tooth extraction, class II edentulism (Acute) left breast cyst removal (Acute) Family History Grandmother Diabetes Social History (Updated 03/24/19 @ 03:02 by Julia Wyatt MD) Smoking Status: Former smoker alcohol intake: never substance use type: does not use caffeine: Yes what type of physical activity do you participate in: none seatbelt use: always do you feel safe at home: Yes additional social history: Js works at [employer] in [facility] pre op LBS: Details: GINI RAMOS is a 28 year old who presents for sterilization preop appointment. Female Reproductive History Menopausal Symptoms: No night sweats Pregancy History 4 Elective abortions Hx Para 3 Spontaneous abortions Hx # Term Pregnancies Ectopic pregnancies Hx # Pregnancies Multiple births # of living children 3 Past Pregnancies Del. Date Name GA/Weeks Outcome Route Bth Weight Gen Labor Lgth Anesthesia Del Locatn Provider FOB Unknown Js Arauz 2008 live - full term Male Bare Unknown 2016 Georgina live - full term Male [facility] 01/18/19 Marleny 38 live - full term 7lbs ?oz Male epidural [facility] ROS Const Constitutional: Denies fatigue, night sweats, weight gain or weight loss ENT ENT: Reports system reviewed and no additional complaints, except as docu Cardio Card: Denies chest pain Resp Resp: Denies cough or dyspnea GI GI: Reports as per HPI; denies abdominal pain, constipation, nausea or vomiting : Denies nipple discharge, urinary frequency, urinary incontinence, urinary hesitancy, urinary urgency, vaginal discharge, vaginal dryness, vaginal odor or vaginal itching Musc Musc: Denies joint pain, back pain or muscle weakness Skin Skin/Breast: Denies hair loss, change in hair, dry skin, breast lump, breast pain, breast skin changes or nipple discharge Neuro Neuro: Reports system reviewed and no additional complaints, except as docu Psych Psych: Reports system reviewed and no additional complaints, except as docu Endo Endo: Denies cold intolerance, excessive sweating, heat intolerance or increased thirst Mj/Lymph Hematologic/Lymphatic: Denies easy bleeding, Denies easy bruising, Denies enlarged lymph nodes Exam Const General: cooperative, healthy appearing, comfortable, no acute distress, well developed Orientation: alert [facility] Head: normal to inspection, normocephalic Ears: hearing grossly normal bilaterally, external ears normal Nose: external nose normal, nares normal Face and sinus: normal facial exam Neck Neck: normal visual inspection, no lymphadenopathy Thyroid: thyroid normal Chest Chest palpation & inspection: normal inspection of the chest Resp Effort & Inspection: normal respiratory effort Auscultation: clear to auscultation bilaterally Cardio Rate: regular rate Rhythm: regular rhythm Heart Sounds: S1 normal, S2 normal GI Inspection: normal to inspection, non-distended Palpation: soft, no hepatosplenomegaly General: bladder normal to palpation External Female Exam: normal external appearance, normal appearance of the urethra Urethra: normal appearance of the urethra, normal palpation, no discharge Speculum Exam - Vagina: normal appearance of the vagina, normal vaginal discharge Speculum Exam - Cervix: normal appearance of the cervix, nontender Bimanual Exam- Vagina & Uterus: normal bimanual exam, uterine size normal, bladder normal to palpation, uterine shape normal, No cervical tenderness, uterine mobility normal, uterine consistency normal, normal cervical palpation, uterus non-tender Bimanual Exam- Adnexa, other: normal adnexae, adnexae mobile, no adnexal masses, pelvic support normal Pelvic Support: normal Musc Other: gross motor intact no deficits, full bilateral strength Skin General: no rashes or lesions noted Neuro General: alert, awake, moves all extremities, no focal motor deficits Motor: muscle tone normal throughout Extrem General: normal to inspection, no pedal edema Psych Appearance: grossly normal Mental Status: mental status grossly normal Affect: normal affect Speech and Movement: speech and movement normal Assessment & Plan Problems 1. Sterilization Z30.2 laparoscopic bilateral salpingectomy Plan discussed surgical risks including risks of anesthesia, infection, bleeding, injury to bowel, bladder or blood vessels, and patient wishes to proceed with surgery. Plan Detail Goals Decrease pain and spasm Improve ability to carry child and climb stairs Coding Level of Care Code No Charge Diagnoses Sterilization Z30.2 UPDATE- I have seen the patient and performed any clinically relevant updates to the history and physical exam. Julia Wyatt MD
--- NOTE | 2019-03-30 | FALS_PTH ---
PATIENT: GINI RAMOS [place] [facility] [place][id number] AGE/SX: 28/F ROOM: RE03/30/[address]: Dr. Julia Wyatt MD : 1990 BED: DIS: 03/30/2019 SPEC #: [id number] RECD: 03/30/19 14:33 STATUS: JOAN REParish #: [id number] MORRIS: 03/30/19 00:[address]: Julia Wyatt DEPT: SURGICAL PATHOLOGY RECD BY: Huey Duval ENTERED: 03/30/19 14:33 SP TYPE: FALL TUBES OTHR DR: No Primary Care Phys Tissues: Fallopian tube Procedures: Surgery Specimen Level II HEADER OPERATION: Laparoscopic salpingectomy PRE-OP DIAGNOSIS: Desired sterilization TISSUE SUBMITTED: Fallopian tubes MICROSCOPIC DIAGNOSIS Bilateral fallopian tubes, salpingectomy Bilateral fallopian tubes including fimbrial ends, no pathologic diagnosis. BAMBI:nicolas 03/31/19 MICROSCOPIC DESCRIPTION Slides are reviewed. GROSS DESCRIPTION Received is one container labeled with the patient's name and designated bilateral fallopian tubes. The specimen consists of two fallopian tubes with an average length of 5.5 cm and has an average diameter of 0.6 cm. Both fallopian tubes have normal fimbriated ends. No mass lesions are identified. Diazo Technician sections are submitted in two cassettes as follows: 1 - one fallopian tube, 2 - the other fallopian tube. / AM:nicolas 03/30/19 TC:4 CPT: 55832 x2
[2019-03-30 06:33] LABS: Internal QC Validated? YES +Cl - CLEAR BKGD; Pregnancy, Urine Negative Negative
[2019-03-30 06:44] VITALS: BMI 29.3
[2019-03-30 06:51] LABS: Hematocrit 38.6 % (37-47); Hemoglobin 12.4 g/dL (12.0-15.0); Mean Corp Hgb Conc 32.1 g/dL (32-36); Mean Corpuscular Hgb 27.1 pg (27.0-32.0); Mean Corpuscular Volume 84.5 fL (81-99); Mean Platelet Vol. 10.8 fl (6.2-12.0); Platelet Count 262 K/mm3 (150-450); RBC Distribution Width CV 15.1 % (11.6-14.6); RBC Distribution Width SD 46.1 fl (35.1-43.9); Red Blood Count 4.57 M/mm3 (4.2-5.4); White Blood Count 7.8 K/mm3 (4.4-11.0)
--- NOTE | 2019-03-30 07:52 | PCM.OPRPT ---
Problem List (1) Sterilization Status: Acute Comment: laparoscopic bilateral salpingectomy Report of Operation Date of Procedure: 03/30/19 Pre-Operative Diagnosis: sterilization Post-Operative Diagnosis: same Surgery/Procedure Performed:: laparoscopic bilateral salpingectomy Description of Surgical Findings:: normal uterus tubes ovaries, soft technical healthcare consultant: Jessica Catherine Type of Anesthesia:: General Special Medications: none Specimen's removed: tubes Drains: none Estimated Blood Loss (mL): 75 Fluids Replaced: crystalloid Description of Procedure: Patient was taken in the operating room and was placed under general anesthesia was prepped and draped in normal sterile fashion in the dorsal lithotomy position. Bladder was drained of clear urine and SCDs were on preoperatively. Uterus was sounded and a uterine manipulator was placed after dilating. Attention was then paid to the abdominal portion of the procedure and the umbilicus was elevated with towel clamps and injected with Marcaine and after a 5 mm incision was made and the Veress needle was entered into the abdomen confirmed to be intra-abdominal with a low opening pressure of less than 5 mmHg. Abdomen was insufflated with CO2 gas and a 5 mm optical trocar was placed under direct visualization. A left lower quadrant 5 mm port and a 5 mm port suprapubically replaced under direct visualization. Uterus was well visualized and bilateral fallopian tubes identified and bilateral tubes were elevated and transecting across the mesosalpinx and the attachment to the uterine corpus bilaterally and some bleeding was noted foxily on the uterus on the left side which was cauterized with the LigaSure and Billie placed over the area. The cul-de-sac was partially suctioned out and no active bleeding was noted. The tubes were removed without complication. Excellent hemostasis was noted. Fallopian tubes were removed through the lower port sites without complication. Liver and upper abdomen were visualized notably within normal limits and no other gross abnormalities were seen in the abdomen. All instruments removed from the abdomen after gas was desufflated. Port sites were closed with 3-0 Monocryl Steri's and op sites were applied. All instruments removed from the vagina and patient was awoken and taken recovery in stable condition. Grafts/Implants Used: none - Complications none - Admit VTE Documentation VTE Present on Admission: No
--- NOTE | 2019-03-30 07:53 | DCINST_ITS ---
Discharge Diet: No Restrictions - Increase fluid intake for the next 48 hours. Discharge Activity: Return to Normal Activity, May Drive - when you are no longer taking narcotic pain medications., May Shower, May Take a Tub Bath - in 7 days Additional Activity Instructions:: Ambulate often the next week after surgery. Nothing in the vagina for 5 days. Call your doctor if your incision/area has: Continuous Slow Oozing, Sudden Increased Bleeding, Increased Pain/ Swelling, Increased Redness, Foul Smelling Discharge Call your doctor if you observe: Fever of 101 or Higher Allergies/Adverse Reactions: Allergies sulfamethoxazole [From Bactrim] Allergy (Verified 03/23/19 17:21) Rash trimethoprim [From Bactrim] Allergy (Verified 03/23/19 17:21) Rash Medications to take at Discharge NK 03/02/19 Primary Care Physician: Care Physician,No Primary [Primary Care Provider] - Test Results: Test results from this visit will be discussed in further detail at your follow- up appointment, if applicable. Please Follow Up With: Julia Wyatt MD - [phone]
[2019-03-30] MEDS: Bupivacaine 0.25% 30 ML Vial (08:20)
[2019-03-30 08:38] VITALS: BP 109/59; PULSE 87; RESP 16; TEMP 36.2; O2SAT 100
[2019-03-30 08:45] VITALS: BP 101/72; PULSE 82; RESP 18; O2SAT 100
[2019-03-30 09:00] VITALS: BP 85/48; PULSE 70; RESP 16; O2SAT 94
[2019-03-30 09:15] VITALS: BP 85/47; PULSE 66; RESP 16; O2SAT 95
[2019-03-30 09:30] VITALS: BP 97/56; PULSE 63; RESP 16; O2SAT 100
[2019-03-30 09:45] VITALS: BP 102/69; PULSE 74; RESP 16; TEMP 36.1; O2SAT 98
== END 2019-03-30 11:09 | disposition home or self-care (01) ==
LOC: SDC 06:08 → AC 06:09
PROVIDERS: Referring Provider Obstetrics & Gynecology; Visit Provider Obstetrics & Gynecology
PROC: (CPT 58661; principal; 2019-03-30 07:15)
DX: Z30.2 Encounter for sterilization (principal); Z87.891 Personal history of nicotine dependence
CPT/HCPCS: 00840; 58661; 36415; 81025; 85027; 86850; 86900; 88302; J7120; J2405

== ENCOUNTER 2022-08-11 09:29 | Outpatient (CLI) | payer MEDICAID, SELFPAY ==
[2022-08-11 10:41] LABS: hCG Titer Quant., Serum 4419 mIU/mL (1-3)
== END 2022-08-11 23:59 | disposition home or self-care (01) ==
LOC: PAVLAB 09:31
PROVIDERS: Referring Provider Nurse Practitioner Women's Health; Visit Provider Nurse Practitioner Women's Health
DX: N91.2 Amenorrhea, unspecified (principal)
CPT/HCPCS: 36415; 84702

== ENCOUNTER 2022-08-11 17:01 | Outpatient (CLI) | payer MEDICAID, SELFPAY ==
--- NOTE | 2022-08-11 17:05 | US_ITS ---
We are attempting to reach an attending provider to discuss findings. An addendum with communication details will be sent when the communication is complete. STUDY: FIRST TRIMESTER OBSTETRICAL ULTRASOUND REASON FOR EXAM: Female, 31 years old viability -- STAT LMP: June 23, 2022. TECHNIQUE: Transabdominal and Transvaginal TECHNICAL QUALITY: Adequate. PRIOR ULTRASOUND: None. FINDINGS: There is no demonstrated intrauterine gestational sac. There is no demonstrated yolk sac. The placenta is non-visualized. There is no demonstrated embryo ( pole). The estimated gestation age (EGA) by LMP is 7 weeks, 0 days. The estimated date of delivery (ANUPAM) by LMP is March 30, 2023. The uterus measures 94 x 6.3 x 5.4 cm. There is no demonstrated uterine fibroid. The cervix is closed. The right ovary measures 3.6 x 2.4 x 2.3 cm. There is adjacent 1.5 cm hypoechoic mass with Doppler blood flow seen. The left ovary measures 1.9 x 1.8 x 1.4 cm. There is 1.6 cm hypoechoic cystic region. There is mild fluid in the cul de sac. US/Transvaginal w/Preg US IMPRESSION: No intrauterine gestation seen. Hypoechoic mass in the right adnexal region with possible ectopic gestation. Free fluid in the pelvis. Electronically Signed: James Mcknight MD at 18:33 EST ,
== END 2022-08-11 23:59 | disposition home or self-care (01) ==
LOC: US 17:01
PROVIDERS: Visit Provider Nurse Practitioner Women's Health
DX: O36.80X0 Pregnancy with inconclusive fetal viability, not applicable or unspecified (principal)
CPT/HCPCS: 76817

== ENCOUNTER 2022-08-11 18:00 | Observation (INO) | payer MEDICAID, SELFPAY ==
[2022-08-11] VITALS (10 sets, daily range): BP systolic 90–112; BP diastolic 50–70; PULSE 78–99; RESP 16–18; TEMP 36.2–36.6; O2SAT 94–100; BMI 25.1; BMI 26.1
--- NOTE | 2022-08-11 18:58 | EDS_ITS ---
HPI HPI - Female History of Present Illness Chief Complaint: Informant: patient Narrative Narrative: Patient is a G5, P3 with last menstrual period on June 23 presenting with concern for ectopic . Patient had tubal ligation performed 3 years ago. She had a positive home test and had an ultrasound today which was concerning for ectopic . Her quant earlier today was 4419. Patient was sent over to the ER to obtain lab work and consult for OB. Patient denies any vaginal bleeding, urinary symptoms, abdominal discomfort, nausea or vomiting. No other complaints at this time. Ultrasound shows no intrauterine gestation but hypoechoic mass in the right adnexal region concerning for possible ectopic and free fluid in the pelvis. PFSH PFSH Home Medications naproxen 250 mg tablet 500 mg PO Q8H PRN PRN Mild Pain #30 TABLETS 08/11/22 [Rx Last Taken Unknown] oxycodone-acetaminophen 5 mg-325 mg tablet (Percocet) 1 tab PO Q6H PRN pain 3 days #12 tabs 08/11/22 [Rx Last Taken Unknown] Allergy/AdvReac Type Severity Reaction Status Date / Time sulfamethoxazole Allergy Rash Verified 08/11/22 18:04 [From Bactrim] trimethoprim [From Bactrim] Allergy Rash Verified 08/11/22 18:04 Family History Grandmother Diabetes Surgical History H/O bilateral salpingectomy H/O dilation and curettage History of wisdom tooth extraction, class II edentulism left breast cyst removal Social History Smoking Status: Current every day smoker tobacco type: e-cigarettes alcohol intake: never substance use type: does not use caffeine: Yes what type of physical activity do you participate in: none seatbelt use: always do you feel safe at home: Yes additional social history: Js works at [employer] in [place] ROS ROS ED Constitutional Constitutional ED: Denies chills or fever(s) Eyes Eyes: Denies blurry vision ENT ENT ED: Denies sore throat Cardiovascular Cardiovascular: Denies chest pain or palpitations Respiratory/Chest Respiratory/Chest: Denies cough Gastrointestinal Gastrointestinal: Denies abdominal pain or nausea Genitourinary Genitourinary ED: Denies dysuria, hematuria or urinary frequency Musculoskeletal Musculoskeletal: Denies arthralgias or myalgias Integumentary Denies rash Neurologic Neurologic: Denies headache(s) or weakness Hematologic/Lymphatic Hematologic/Lymphatic: Reports easy bruising; Denies easy bleeding EXAM Physical Exam Const Vital Signs: 08/11/22 18:01 08/11/22 19:54 08/11/22 21:36 Temperature 97.1 F L 97.1 F L 97.7 F L Temperature Source Temporal Temporal Temporal Pulse Rate 88 88 96 Respiratory Rate 16 16 16 Respiratory Pattern Normal Blood Pressure 102/69 102/69 112/61 Blood Pressure Mean 80 80 78 Blood Pressure Source Monitor Blood Pressure Position Semi-Fowlers Blood Pressure Location Left Arm Baseline BP 102/69 Pulse Ox 100 100 100 Oxygen Delivery Method Room Air Room Air Room Air 08/11/22 21:45 08/11/22 22:00 08/11/22 22:15 Temperature Temperature Source Pulse Rate 89 85 86 Respiratory Rate 16 16 16 Respiratory Pattern Blood Pressure 90/50 L 104/70 103/62 Blood Pressure Mean 63 81 75 Blood Pressure Source Monitor Monitor Monitor Blood Pressure Position Semi-Fowlers Semi-Fowlers Semi-Fowlers Blood Pressure Location Left Arm Left Arm Left Arm Baseline BP 102/69 102/69 102/69 Pulse Ox 100 100 96 Oxygen Delivery Method Room Air Room Air Room Air 08/11/22 22:30 08/11/22 22:45 Temperature Temperature Source Pulse Rate 97 99 Respiratory Rate 16 18 Respiratory Pattern Blood Pressure 96/69 95/61 Blood Pressure Mean 78 72 Blood Pressure Source Monitor Monitor Blood Pressure Position Semi-Fowlers Semi-Fowlers Blood Pressure Location Left Arm Left Arm Baseline BP 102/69 102/69 Pulse Ox 94 98 Oxygen Delivery Method Room Air Room Air Positive well nourished and well developed General Appearance ED: well developed and NAD HEENT Reports moist mucous membranes Eyes PERRL and EOMs intact bilaterally Neck supple Chest Wall inspection of chest normal and palpation of chest normal Resp normal respiratory effort and clear to auscultation bilaterally Cardio regular rate and regular rhythm GI normal to inspection, nondistended, normoactive bowel sounds and soft to palpation Palpation: Negative for guarding or rigid Back/Spine no CVA tenderness Extremity normal to inspection and full ROM Neuro oriented x3 Motor Exam: Negative for general weakness Psych Mood & Affect: tearful Skin no rashes or lesions noted and no wounds MDM MDM MDM Narrative Medical decision making narrative: Patient is evaluated for concern for ectopic . She had tubal ligation. Quant is 4400 and she had an ultrasound concerning for ectopic in the right adnexa. CBC, CMP and type and screen ordered per recommendation of VICE PRESIDENT OF SOFTWARE DEVELOPMENT. Discussed with Dr. Mtz who will evaluate the patient in the ER. IV fluids are started. Patient is currently hemodynamically stable and pain- free. Patient evaluated by VICE PRESIDENT OF SOFTWARE DEVELOPMENT in the ER. Will be taken to the OR for laparoscopic treatment of ectopic . Remains hemodynamically stable in the ER. Lab Data Labs: Laboratory Results - last 24 hr 08/11/22 08/11/22 08/11/22 18:42 18:42 19:03 WBC RBC Hgb Hct MCV MCH MCHC RDW Std Deviation RDW Coeff of Bianca Plt Count MPV Immature Gran % (Auto) Neut % (Auto) Lymph % (Auto) [place] % (Auto) Eos % (Auto) Baso % (Auto) Absolute Neuts (auto) Absolute Lymphs (auto) Nucleated RBC % Sodium 140 Potassium 3.5 Chloride 110 H Carbon Dioxide 22.0 Anion Gap 8 BUN 11 Creatinine 0.65 Estim Creat Clear Calc 107.30 Est GFR (MDRD) Af Amer 136 Est GFR (MDRD) Non-Af 112 BUN/Creatinine Ratio 17.0 Glucose 83 Calcium 8.8 Total Bilirubin 0.30 AST 14 L ALT 22 Alkaline Phosphatase 44 L Total Protein 7.3 Albumin 3.8 Globulin 3.5 Albumin/Globulin Ratio 1.1 Blood Type Cancelled A POSITIVE A1 Antigen Typing Cancelled Rho(D) Type Cancelled Antibody Screen Cancelled NEGATIVE 08/11/22 19:15 WBC 12.3 H RBC 4.13 L Hgb 12.7 Hct 37.3 MCV 90.3 MCH 30.8 MCHC 34.0 RDW Std Deviation 42.4 RDW Coeff of Bianca 12.9 Plt Count 279 MPV 11.2 Immature Gran % (Auto) 0.200 Neut % (Auto) 74.4 H Lymph % (Auto) 18.9 L [place] % (Auto) 5.5 Eos % (Auto) 0.7 Baso % (Auto) 0.3 Absolute Neuts (auto) 9.1 H Absolute Lymphs (auto) 2.32 Nucleated RBC % 0 Sodium Potassium Chloride Carbon Dioxide Anion Gap BUN Creatinine Estim Creat Clear Calc Est GFR (MDRD) Af Amer Est GFR (MDRD) Non-Af BUN/Creatinine Ratio Glucose Calcium Total Bilirubin AST ALT Alkaline Phosphatase Total Protein Albumin Globulin Albumin/Globulin Ratio Blood Type A1 Antigen Typing Rho(D) Type Antibody Screen Discharge Plan Dx/Rx/DC Orders Clinical Impression: Ectopic Disposition Disposition: Acute Care Hospital [facility] Discharge Date/Time: 08/11/22 20:04
[2022-08-11] MEDS: 0.9% Normal Saline 1,000 ML 999 ML IV (19:15)
[2022-08-11 19:22] LABS: Absolute Lymphocyte Count 2.32 X10^3/uL (0.83-4.51); Absolute Neutrophil Count 9.1 X10^3/uL (2.0-7.7); Basophil# 0.04 X10^3/uL; Basophil% 0.3 % (0-1); Eosinophil# 0.08 X10^3/uL; Eosinophils% 0.7 % (0-5); Hematocrit 37.3 % (37-47); Hemoglobin 12.7 g/dL (12.0-15.0); Lymphocyte # 2.32 X10^3/ul (0.83-4.51); Lymphocyte % 18.9 % (19-41); Mean Corpuscular Hgb 30.8 pg (27.0-32.0); Mean Corpuscular Volume 90.3 fL (81-99); Mean Platelet Vol. 11.2 fl (6.2-12.0); Monocyte# 0.67 X10^3/uL; Monocyte% 5.5 % (0-10); NRBC Flagged by Analyzer 0 % (0-5); Neutrophil # 9.11 X10^3/uL (2.7-7.7); Neutrophil % 74.4 % (47-70); Platelet Count 279 K/mm3 (150-450); RBC Distribution Width CV 12.9 % (11.6-14.6); RBC Distribution Width SD 42.4 fl (35.1-43.9); Red Blood Count 4.13 M/mm3 (4.2-5.4); White Blood Count 12.3 K/mm3 (4.4-11.0)
[2022-08-11 19:24] LABS: ALB/GLOB Ratio 1.1 RATIO (0.9-2.4); AST(SGOT) 14 U/L (15-37); Alanine Aminotransfer ALT/SGPT 22 U/L (13-56); Albumin, Serum 3.8 g/dL (3.2-5.0); Alkaline Phosphatase 44 U/L (45-117); Anion Gap 8 (5-15); BUN 11 mg/dL (7-18); Calcium,Total 8.8 mg/dL (8.5-10.1); Chloride 110 mmol/L (98-107); Creatinine, Serum 0.65 mg/dL (0.55-1.02); EST Glomerular Filtration Rate 112 mL/min (>60); Est Glom Filt Rate - Afr Amer 136 mL/min (>60); Globulin 3.5 g/dL (2.2-4.2); Glucose 83 mg/dL (74-106); Potassium 3.5 mmol/L (3.5-5.1); Protein, Total 7.3 g/dL (6.4-8.2); Sodium Level 140 mmol/L (136-145)
--- NOTE | 2022-08-11 20:00 | FAL_PTH ---
PATIENT: GINI RAMOS LOC: MS3 U#:[id number] AGE/SX: 31/F ROOM: MS319 RE08/11/[address]: Dr. Bettina Iglesias DO : 1990 BED: 1 DIS: 08/12/2022 SPEC #: [id number] RECD: 08/12/22 07:17 STATUS: JOAN ROS #: [id number] MORRIS: 08/11/22 20:[address]: Bettina Iglesias DEPT: SURGICAL PATHOLOGY RECD BY: Zenobia Altamirano ENTERED: 08/12/22 09:08 SP TYPE: ECTOPIC OTHR DR: No Primary Care Phys Tissues: A - ECTOPIC PREG B - Fallopian tube Procedures: Surgery Specimen Level IV HEADER OPERATION: Laparoscopic removal ectopic PRE-OP DIAGNOSIS: Ectopic TISSUE SUBMITTED: A ? Right ovary, B ? Broad ligament mass MICROSCOPIC DIAGNOSIS A. Right ovary, oophorectomy: Follicular and corpus luteal cysts. Corpora albicantia. B. Broad ligament mass, biopsy: Chorionic villi, decidualized tissue and trophoblastic cells consistent with products of conception. AM:nicolas 08/13/2022 MICROSCOPIC DESCRIPTION Slides are reviewed. GROSS DESCRIPTION A - Received in fixative is one container labeled with the patient's name and designated right ovary. The specimen consists of two irregular fragments of pink-yellow soft tissue ranging in size from 2.2 to 4 cm. Serial sections reveal multiple cysts ranging in size from 0.2 to 1.5 cm and contain clear fluid. Laundrette Owner sections are submitted in two cassettes. B - Received in fixative is one container labeled with the patient's name and designated broad ligament mass. The specimen consists of multiple irregular fragments of dark hunter tissue that in aggregate measure 1.7 x 1 x 0.2 cm. The specimen is totally submitted in one cassette. / AM:nicolas 08/12/2022 TC:5 CPT: 63672 x2
--- NOTE | 2022-08-11 20:10 | PCM.HP.OB ---
HPI - General HPI Narrative GINI RAMOS, is a 31 y/o who presents to [facility] ultrasound to rule out ectopic . She had a positive test at home today despite h/o bilateral slapingectomy in 2019. The quant was 4400 and ultrasound showed the following: FINDINGS: There is no demonstrated intrauterine gestational sac. There is no demonstrated yolk sac. The placenta is non-visualized. There is no demonstrated embryo ( pole). The estimated gestation age (EGA) by LMP is 7 weeks, 0 days.? The estimated date of delivery (ANUPAM) by LMP is March 30, 2023. The uterus measures 94 x 6.3 x 5.4 cm.? There is no demonstrated uterine fibroid.? The cervix is closed. The right ovary measures 3.6 x 2.4 x 2.3 cm.? There is adjacent? 1.5 cm hypoechoic mass with Doppler blood flow seen. The left ovary measures 1.9 x 1.8 x 1.4 cm.? There is 1.6 cm? hypoechoic cystic region. There is mild fluid in the cul de sac. _ Signed ADDENDUM by Dr. James Mcknight MD on 08/11/22 at 1833 US/Transvaginal w/Preg US IMPRESSION: No intrauterine gestation seen. ? Hypoechoic mass in the right adnexal region with possible ectopic gestation. Free fluid in the pelvis. The patient was walked through the algorithm for an ectopic. although the quant is less than 5000 and the mass is less than 4 cm, there is the small possibility of a bilateral ectopic and also some free fluid that could indicate partial rupture already.This makes it relatively contraindicated to treat with MTX alone. pt states that she understands and is ready for surgery. she last ate [id number] am PFSH PFSH Home Medications naproxen 250 mg tablet 500 mg PO Q8H PRN PRN Mild Pain #30 TABLETS 08/11/22 [Rx Last Taken Unknown] oxycodone-acetaminophen 5 mg-325 mg tablet (Percocet) 1 tab PO Q6H PRN pain 3 days #12 tabs 08/11/22 [Rx Last Taken Unknown] Allergy/AdvReac Type Severity Reaction Status Date / Time sulfamethoxazole Allergy Rash Verified 08/11/22 18:04 [From Bactrim] trimethoprim [From Bactrim] Allergy Rash Verified 08/11/22 18:04 Family History Grandmother Diabetes Surgical History H/O bilateral salpingectomy H/O dilation and curettage History of wisdom tooth extraction, class II edentulism left breast cyst removal Social History Smoking Status: Current every day smoker tobacco type: e-cigarettes alcohol intake: never substance use type: does not use caffeine: Yes what type of physical activity do you participate in: none seatbelt use: always do you feel safe at home: Yes additional social history: Js works at [employer] in [place] History 4 Elective abortions Hx Para 3 Spontaneous abortions Hx # Term Pregnancies Ectopic pregnancies Hx # Pregnancies Multiple births # of living children 3 Past Pregnancies Del. Date Name GA/Weeks Outcome Route Bth Weight [facility] Js Arauz 2009 live - full term Male Bare Unknown 2016 live - full term Male TERRELL 01/18/19 Marleny 38 live - full term 7lbs ?oz Male epidural [facility] TERRELL ROS Constitutional Constitutional: Denies change in weight, fatigue, fever(s), headache(s), poor appetite or weakness Eyes Eyes: Denies blurry vision, change in vision, seeing flashes or spots in vision ENT HEENT: Denies dizziness, headache(s), loss taste/smell or sore throat Cardiovascular Cardiovascular: Denies chest pain, dizziness, dyspnea, irregular heart rhythm, leg edema, palpitations, rapid heart rate or vomiting Respiratory/Chest Respiratory/Chest: Denies chest tightness, cough, dyspnea or breast pain Gastrointestinal Gastrointestinal: Denies abdominal pain, anorexia, constipation, cramping, diarrhea, hemorrhoids, vomiting or weight changes Genitourinary Genitourinary: Denies dysuria, flank pain, genital lesions, genital pain, urinary frequency or urinary urgency Musculoskeletal Musculoskeletal: Denies back pain, difficulty walking, joint pain, limited range of motion, muscle cramps or numbness Integumentary Integumentary: Denies lesions or unusual bruising Neurologic Neurologic: Denies abnormal movements, abnormal speech, dizziness, numbness, seizure-like activity or syncope Psychiatric Psychiatric: Denies anxiety, behavioral changes, change in appetite, change in libido, cognitive impairment, confusion, depression, difficulty concentrating, hallucinations or suicidal thoughts Endocrine Endocrinology: Denies excessive sweating, polydipsia or polyuria Hematologic/Lymphatic Hematologic/Lymphatic: Denies easy bleeding, easy bruising or lymphadenopathy Allergic/Immunologic Allergic/Immunologic: Denies itchy eyes, lip swelling, seasonal rhinorrhea, rhinitis, throat swelling, tongue swelling, eczemia, wheezing or asthma Vital Signs Vital Signs Vital Signs: 08/11/22 18:01 08/11/22 19:54 Temperature 97.1 F L 97.1 F L Temperature Source Temporal Temporal Pulse Rate 88 88 Respiratory Rate 16 16 Blood Pressure 102/69 102/69 Blood Pressure Mean 80 80 Pulse Ox 100 100 Oxygen Delivery Method Room Air Room Air Weight Weight: 146 lb 8 oz Body Mass Index (BMI) 25.1 Physical Exam Const alert, oriented x3, no apparent distress and healthy appearing General Appearance: cooperative; Negative for anxious HEENT normocephalic Face and Sinus: normal facial exam Eyes EOMs intact bilaterally and no scleral icterus General Eye: normal appearance of both eyes Neck full ROM and supple Lymph Lymphatic: no lymphadenopathy noted Chest Chest: abnormal inspection of the chest Resp normal respiratory effort Effort and Inspection: able to speak in complete sentences Cardio regular rate GI soft to palpation and non-tender Palpation: soft; Negative for tender Back/Spine no CVA tenderness Extremity normal to inspection, full ROM and no clubbing, cyanosis or edema General Extremity: Negative for calf tenderness or edema Skin Lesions: no lesions Rashes: no rashes Psych mental status grossly normal Labs Labs Labs: Blood Type A POSITIVE Antibody Screen NEGATIVE Hct 37.3 % (37-47) Hgb 12.7 g/dL (12.0-15.0) Obstetrics US Rubella IgG Antibody 34.0 IU/mL Hep Bs Antigen Negative (Negative) HIV 1&2 Antibody Non-Reactive (Nonreactive) Glucose 1 Hr 50 gm 83 mg/dL (70-140) Group B Strep DNA Negative (Negative) Rhogam given: No Miscellaneous Test Assessment & Plan (1) Ectopic : PLAN: right adnexal ectopic with left ovarian cyst present. plan for diagnostic laparoscopy, possible right oophorectomy, possible left salpingectomy, or oophorectomy. After discussing the patient's diagnosis and treatment plan options, patient wishes to proceed with surgical management. I have discussed with the patient the risks, benefits, and alternatives of the procedure which include but are not limited to risks of anesthesia, bleeding, infection, possible damage to bowel, bladder, or surrounding vasculature which could lead to additional surgery to evaluate any complications. Patient agrees to procedure and wishes to proceed. ACOG/uptodate references given for additional information regarding procedure.
[2022-08-11] MEDS: Bupivacaine 0.25% 30 ML Vial (21:27)
--- NOTE | 2022-08-11 21:46 | OP.PCM_ITS ---
Problems Associated Problem List Diagnoses (1) Ectopic : Operative Report Date of Procedure: 08/11/22 preoperative diagnosis: Right adnexal ectopic , hemoperitoneum postoperative diagnosis: right adnexal ectopic , hemoperitoneum surgery: Right oophorectomy and removal of right broad ligament mass Surgeon: Dr. 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 her uterus was empty and the right ovary contained a hypoechoic structure with blood flow present. The patient is status post bilateral salpingectomy after her last child was born. Surgical pathology showed removal to the fimbriated ends. The decision was made to proceed with surgical management of the ectopic. procedure details: Patient was taken in the operating room and was placed under general anesthesia was prepped and draped in normal sterile fashion in the dorsal lithotomy position.? Bladder was drained of clear urine and SCDs were on preoperatively.? Uterus was sounded and a uterine manipulator was placed after dilating.? Attention was then paid to the abdominal portion of the procedure and the umbilicus was injected with 5cc of 25% Marcaine injection. A 5 mm incision was made and a 5 mm trocar was inserted into the abdomen under direct visualization. The Abdomen was insufflated with CO2 gas and the patient was placed in a Trendelenburg position. The right ovary was noted to be enlarged with a 2 cm firm mass. The left ovary appeared normal. A left lower quadrant 5 mm incision and trocar was inserted into the abdomen under direct visualization. Next a mini grasper suprapubic trocar was inserted. The minigrasper was used to elevate the right ovary. Using a LigaSure device, the right infundibulopelvic ligament was stretched slightly to the left and cauterized close to the ovary and inferior where more prevalent blood supply vs mass was noted on the cornual region of the uterus. The specimen containing the ovary and ligament were passed into a 5 mm EndoCatch bag and removed through the 5 mm trocar site. A second look with the laparoscope showed a second bulge of tissue coming from the inferior aspect of the broad ligament in the retroperitoneal space. Careful and further inspection with a curved [place] laparoscopic instrument showed that there was bleeding from this site. the site was carefully opened and tissue was carefully teased out of the 3 mm opening. The tissue resembled chorionic villi. This tissue was passed off for pathology analysis. The tissue site was found to be naturally hemostatic, however because of the location, Floseal was inserted and watched for approximately 5 minutes to ensure further hemostasis. Some blood trickled from the site and then stopped completely. No expansion of blood was noted behind the ligament/retroperitoneal space. At this time the patient was found to be stable to end the surgery. The instruments were removed from the abdomen and the incision were closed with a 4-0 monocryl suture. The vaginal instruments were also removed and no vaginal bleeding was noted. The patient tolerated the procedure well. Sponge, lap, and needle counts were correct x 2 and she is now in recovery room in s table condition. The plan is for her to receive methotrexate IM before decision discharge to home ore floor. Multi Select Codes Urinary/Genital Urinary/Genital CPT Codes: 00508 Laproscopic BS/O
--- NOTE | 2022-08-11 22:06 | DCINST_ITS ---
Discharge Instructions Diet Discharge Diet: No restrictions Activity Discharge Activity: Return to Normal Activity, May Not Drive (for two weeks or while taking narcotic pain medications.), May Shower and May Take a Tub Bath (in 7 days) May resume sexual activity in: 1 week Weight Bearing Status: Full weight bearing Dressing / Incision Call your doctor if you observe: Using more than 1 pad per hour, Shortness of breath, Chest pain and Uncontrolled pain Suture Line Care: Avoid Pulling/Pushing and Avoid Pinching/Bending Remove Dressing in: 1 week (if present) Cleanse incision/area with: Soap & Water and Keep Dressing Clean & Dry Follow Up Care Please Follow Up With: Bettina Iglesias DO When: Call to make an appointment with your doctor for a follow up incision check in 1-2 weeks. Test Results: Test results from this visit will be discussed in further detail at your follow- up appointment, if applicable. Discharge Plan Admission Primary Reason for Your Visit: ectopic Attending Provider: Bettina Iglesias Primary Care Provider: Care Physician,Padmini Primary Discharge Orders/Prescriptions Prescriptions: New naproxen 250 mg tablet 500 mg PO Q8H PRN PRN (Reason: Mild Pain ) Qty: 30 0RF oxycodone-acetaminophen [Percocet] 5-325 mg tablet 1 tab PO Q6H PRN (Reason: pain) 3 Days Qty: 12 0RF Referrals / Follow Up: Care Physician,No Primary [Primary Care Provider] - Disposition Disposition (needs filled in before D/C Order can be placed): Home, Self Care
[2022-08-11] MEDS: Lactated Ringers 1,000 ML 100 ML IV (23:18)
[2022-08-12 01:22] VITALS: BP 96/48; PULSE 78; RESP 16; TEMP 36.5; O2SAT 95
[2022-08-12 03:30] VITALS: BP 97/46; PULSE 78; RESP 16; TEMP 36.5; O2SAT 96
[2022-08-12 05:52] VITALS: BP 93/51; PULSE 80; RESP 16; TEMP 36.9; O2SAT 96
[2022-08-12] MEDS: HYDROcodone Bitartrate/Apap 5/325 Tablet PO (05:57)
[2022-08-12 06:00] VITALS: BP 93/51; PULSE 80; RESP 16; TEMP 36.9; O2SAT 96
[2022-08-12 06:59] LABS: Absolute Lymphocyte Count 0.51 X10^3/uL (0.83-4.51); Absolute Neutrophil Count 9.1 X10^3/uL (2.0-7.7); Basophil# 0.01 X10^3/uL; Basophil% 0.1 % (0-1); Hematocrit 34.2 % (37-47); Hemoglobin 11.9 g/dL (12.0-15.0); Lymphocyte # 0.51 X10^3/ul (0.83-4.51); Lymphocyte % 5.2 % (19-41); Mean Corp Hgb Conc 34.8 g/dL (32-36); Mean Corpuscular Hgb 31.2 pg (27.0-32.0); Mean Corpuscular Volume 89.8 fL (81-99); Monocyte# 0.11 X10^3/uL; Monocyte% 1.1 % (0-10); NRBC Flagged by Analyzer 0 % (0-5); Neutrophil # 9.06 X10^3/uL (2.7-7.7); Neutrophil % 93.3 % (47-70); POSITIVE DIFFERENTIAL YES; Platelet Count 246 K/mm3 (150-450); RBC Distribution Width CV 12.7 % (11.6-14.6); RBC Distribution Width SD 42.4 fl (35.1-43.9); Red Blood Count 3.81 M/mm3 (4.2-5.4); White Blood Count 9.7 K/mm3 (4.4-11.0)
[2022-08-12 07:01] LABS: Differential Indicated SCAN CRITERIA MET
[2022-08-12 07:50] LABS: ALB/GLOB Ratio 1.2 RATIO (0.9-2.4); AST(SGOT) 12 U/L (15-37); Alanine Aminotransfer ALT/SGPT 19 U/L (13-56); Albumin, Serum 3.4 g/dL (3.2-5.0); Alkaline Phosphatase 41 U/L (45-117); Anion Gap 8 (5-15); BUN 7 mg/dL (7-18); Calcium,Total 9.1 mg/dL (8.5-10.1); Chloride 112 mmol/L (98-107); Creatinine, Serum 0.58 mg/dL (0.55-1.02); EST Glomerular Filtration Rate 127 mL/min (>60); Est Glom Filt Rate - Afr Amer 154 mL/min (>60); Estimated Creatinine Clearance 120.25 ml/min; Globulin 2.9 g/dL (2.2-4.2); Glucose 109 mg/dL (74-106); Potassium 4.1 mmol/L (3.5-5.1); Protein, Total 6.3 g/dL (6.4-8.2); Sodium Level 141 mmol/L (136-145)
[2022-08-12 08:14] VITALS: BP 104/64; PULSE 60; RESP 18; TEMP 36.3; O2SAT 99
--- NOTE | 2022-08-12 08:40 | PN.OBGYN_ITS ---
Subjective Subjective pt is up walking around she states that her only complaint currently is umbilical pain. She states that the right sided flank pain she had yesterday is now gone. Cr is stable (lower than yesterday) and she wants to go home. Objective Data Objective Data Vital Signs: Vital Signs Temp Pulse Resp BP Pulse Ox O2 Del Method 97.4 F L 60 18 104/64 99 Room Air 08/12/22 08:14 08/12/22 08:14 08/12/22 08:14 08/12/22 08:14 08/12/22 08:14 08/12/22 08:14 Oxygen Delivery Method Room Air Weight: 152 lb 5.431 oz Body Mass Index (BMI) 26.1 Intake & Output: Intake and Output for Last 24 Hours 08/10/22 08/11/22 08/12/22 23:59 23:59 23:59 Intake Total 3003.42 / 3003.42 898.33 / 898.33 Output Total 250 / 250 600 / 600 Balance 2753.42 / 2753.42 298.33 / 298.33 Lab / Micro Data Result Diagrams: 08/12/22 06:20 08/12/22 06:20 Labs: Laboratory Results - last 24 hr 08/11/22 18:42: Sodium 140, Potassium 3.5, Chloride 110 H, Carbon Dioxide 22.0, Anion Gap 8, BUN 11, Creatinine 0.65, Estim Creat Clear Calc 107.30, Est GFR (MDRD) Af Amer 136, Est GFR (MDRD) Non-Af 112, BUN/Creatinine Ratio 17.0, Glucose 83, Calcium 8.8, Total Bilirubin 0.30, AST 14 L, ALT 22, Alkaline Ph osphatase 44 L, Total Protein 7.3, Albumin 3.8, Globulin 3.5, Albumin/Globulin Ratio 1.1 08/11/22 18:42: Blood Type Cancelled, A1 Antigen Typing Cancelled, Rho(D) Type Cancelled, Antibody Screen Cancelled 08/11/22 19:03: Blood Type A POSITIVE, Antibody Screen NEGATIVE 08/11/22 19:15: WBC 12.3 H, RBC 4.13 L, Hgb 12.7, Hct 37.3, MCV 90.3, MCH 30.8, MCHC 34.0, RDW Std Deviation 42.4, RDW Coeff of Bianca 12.9, Plt Count 279, MPV 11.2, Immature Gran % (Auto) 0.200, Neut % (Auto) 74.4 H, Lymph % (Auto) 18.9 L, Archuleta % (Auto) 5.5, Eos % (Auto) 0.7, Baso % (Auto) 0.3, Absolute Neuts (auto) 9.1 H, Absolute Lymphs (auto) 2.32, Nucleated RBC % 0 08/12/22 06:20: WBC 9.7, RBC 3.81 L, Hgb 11.9 L, Hct 34.2 L, MCV 89.8, MCH 31.2, MCHC 34.8, RDW Std Deviation 42.4, RDW Coeff of Bianca 12.7, Plt Count 246, MPV 11.0, Immature Gran % (Auto) 0.300, Neut % (Auto) 93.3 H, Lymph % (Auto) 5.2 L, Archuleta % (Auto) 1.1, Eos % (Auto) 0.0, Baso % (Auto) 0.1, Absolute Neuts (auto) 9.1 H, Absolute Lymphs (auto) 0.51 L, Nucleated RBC % 0 08/12/22 06:20: Sodium 141, Potassium 4.1, Chloride 112 H, Carbon Dioxide 21.0, Anion Gap 8, BUN 7, Creatinine 0.58, Estim Creat Clear Calc 120.25, Est GFR (MDRD) Af Amer 154, Est GFR (MDRD) Non-Af 127, BUN/Creatinine Ratio 12.0, Glucose 109 H, Calcium 9.1, Total Bilirubin 0.40, AST 12 L, ALT 19, Alkaline Phosphatase 41 L, Total Protein 6.3 L, Albumin 3.4, Globulin 2.9, Albumin/Globulin Ratio 1.2 ROS Constitutional Constitutional: Reports systems reviewed and no addt'l complaints, except as documented Cardiovascular Cardiovascular: Denies chest pain, dizziness, dyspnea or irregular heart rhythm Respiratory/Chest Respiratory/Chest: Denies cough, pain on inspiration or shortness of breath at rest Gastrointestinal Gastrointestinal: Denies abdominal pain, nausea or vomiting Genitourinary Genitourinary: Denies burning urination Musculoskeletal Musculoskeletal: Denies muscle cramps, muscle spasms or muscle weakness Neurologic Neurologic: Denies confusion, dizziness, headache(s) or lack of coordination Psychiatric Psychiatric: Denies anxiety, behavioral changes or depression Physical Exam HEENT normocephalic Resp normal respiratory effort and normal air movement GI soft to palpation, non-tender and non-distended Rectal Exam: other Other Details: Incision is clean, dry, and intact no CVA tenderness Extremity normal to inspection General Extremity: edema bilateral (trace ) Assessment & Plan (1) Ectopic : PLAN: pathology pending but highly suspect that the ectopic was retroperitoneal close to ureter. This area was carefully opened and irrigated. no suspicion for damage to ureters. pt may be discharged to home.
== END 2022-08-12 10:15 | disposition home or self-care (01) ==
LOC: ED 18:49 → AC 19:32 → ACINP 19:33 → AC 23:00 → MS3 23:00
PROVIDERS: Admitting Provider Obstetrics & Gynecology; Emergency Provider Emergency Medicine; Referring Provider Obstetrics & Gynecology; Visit Provider Obstetrics & Gynecology
PROC: 10T24ZZ Resection of Products of Conception, Ectopic, Percutaneous Endoscopic Approach (ICD-10-PCS; CPT 59150; principal; 2022-08-11 20:00)
DX: O00.80 Other ectopic pregnancy without intrauterine pregnancy (principal); K66.1 Hemoperitoneum; F17.290 Nicotine dependence, other tobacco product, uncomplicated; O99.891 Other specified diseases and conditions complicating pregnancy; N83.291 Other ovarian cyst, right side; Z90.79 Acquired absence of other genital organ(s); O36.80X0 Pregnancy with inconclusive fetal viability, not applicable or unspecified; N91.2 Amenorrhea, unspecified
CPT/HCPCS: 58661; 00840; 88302; 36415; 76817; 80053; 84702; 85025; 86850; 86900; 86901; 88305; 96360; 96361; 99284; J7030; J7120; A4216; J2405; J9250

== ENCOUNTER 2022-08-15 10:00 | Outpatient (CLI) | payer MEDICAID, SELFPAY ==
[2022-08-15 11:24] LABS: hCG Titer Quant., Serum 735 mIU/mL (1-3)
== END 2022-08-15 23:59 | disposition home or self-care (01) ==
LOC: LAB 10:01
PROVIDERS: Referring Provider Obstetrics & Gynecology; Visit Provider Obstetrics & Gynecology
DX: O00.90 Unspecified ectopic pregnancy without intrauterine pregnancy (principal)
CPT/HCPCS: 36415; 84702

== ENCOUNTER → 2022-08-19 | Outpatient (CLI) | payer MEDICAID, SELFPAY ==
[2022-08-19 13:00] LABS: hCG Titer Quant., Serum 360 mIU/mL (1-3)
== END | disposition home or self-care (01) ==
LOC: PAVLAB 11:56
PROVIDERS: Referring Provider Obstetrics & Gynecology; Visit Provider Obstetrics & Gynecology
DX: O09.90 Supervision of high risk pregnancy, unspecified, unspecified trimester (principal)
CPT/HCPCS: 36415; 84702

== ENCOUNTER → 2022-08-25 | Outpatient (CLI) | payer MEDICAID, SELFPAY ==
[2022-08-25 09:34] LABS: hCG Titer Quant., Serum 118 mIU/mL (1-3)
== END | disposition home or self-care (01) ==
LOC: PAVLAB 08:53
PROVIDERS: Referring Provider Obstetrics & Gynecology; Visit Provider Obstetrics & Gynecology
DX: O00.90 Unspecified ectopic pregnancy without intrauterine pregnancy (principal)
CPT/HCPCS: 36415; 84702

== ENCOUNTER → 2022-09-02 | Outpatient (CLI) | payer MEDICAID, SELFPAY ==
[2022-09-02 11:14] LABS: hCG Titer Quant., Serum 7 mIU/mL (1-3)
== END | disposition home or self-care (01) ==
LOC: PAVLAB 10:37
PROVIDERS: Referring Provider Obstetrics & Gynecology; Visit Provider Obstetrics & Gynecology
DX: O00.90 Unspecified ectopic pregnancy without intrauterine pregnancy (principal)
CPT/HCPCS: 36415; 84702

== ENCOUNTER 2022-12-15 13:00 | Emergency (ER) | payer MEDICAID, SELFPAY ==
[2022-12-15 13:01] VITALS: BP 123/81; PULSE 121; RESP 18; TEMP 36; O2SAT 99; BMI 24.3
--- NOTE | 2022-12-15 13:47 | ED.VIS.BACK ---
HPI History of Present Illness Chief Complaint: Back Onset/Context/Timing Onset: Weeks (1) Context: Gradual Onset Timing: Continuous Quality: - (Stabbing, pressure) Location: Lumbar, Buttock and Right Leg Worsened by: improves with Movement, Ambulation and Bending Relieved by: Nothing Associated Symptoms Associated Symptoms: Tingling and Radiation to Right Leg; Negative for Numbness, Radiation to Left Leg, Fever, Abdominal Pain, Dysuria, Unable to Ambulate, Unable to Transfer, Urinary Retention, Urinary Incontinence, Constipation or Fecal Incontinence Narrative Narrative: Patient presents with low back pain that has been constant for the past week. Patient states she has seen a chiropractor for this but her pain feels worse. Patient states her pain radiates into her right hip and down to her right knee. Patient describes her pain as stabbing and pressure. Patient states it is worse with bending and movement. Patient states nothing seems to make it better. Patient denies any abdominal pain. Patient admits to some occasional tingling. Patient denies any bowel or bladder changes. Patient denies any saddle anesthesia. PFSH PFSH Home Medications naproxen 250 mg tablet 500 mg PO Q8H PRN PRN Mild Pain #30 TABLETS 08/11/22 [Rx Last Taken Unknown] cyclobenzaprine 10 mg tablet 10 mg PO QHS PRN PRN Muscle Spasm #10 TABLETS 12/15/22 [Rx Last Taken Unknown] naproxen 500 mg tablet 500 mg PO BID PRN PRN pain #20 tabs 12/15/22 [Rx Last Taken Unknown] Allergy/AdvReac Type Severity Reaction Status Date / Time sulfamethoxazole Allergy Rash Verified 12/15/22 13:01 [From Bactrim] trimethoprim [From Bactrim] Allergy Rash Verified 12/15/22 13:01 Family History Grandmother Diabetes Surgical History H/O bilateral salpingectomy H/O dilation and curettage History of wisdom tooth extraction, class II edentulism left breast cyst removal S/P right oophorectomy (~08/11/22) Social History Smoking Status: Current every day smoker tobacco type: e-cigarettes alcohol intake: never substance use type: does not use caffeine: Yes what type of physical activity do you participate in: none seatbelt use: always do you feel safe at home: Yes additional social history: Js works at [email or web address] in [place] ROS ROS ED Constitutional Constitutional ED: Reports chills and subjective; Denies fever(s) Eyes Eyes: Denies blurry vision or change in vision ENT ENT ED: Denies rhinorrhea or sore throat Cardiovascular Cardiovascular: Denies chest pain or palpitations Respiratory/Chest Respiratory/Chest: Reports cough; Denies dyspnea Gastrointestinal Gastrointestinal: Denies nausea or vomiting Genitourinary Genitourinary ED: Denies dysuria or hematuria Musculoskeletal Musculoskeletal: Reports back pain; Denies neck pain Integumentary Denies abscess or rash Neurologic Neurologic: Denies headache(s) or weakness Allergic/Immunologic Allergic/Immunologic ED: Denies mouth swelling or urticaria EXAM Physical Exam Const Vital Signs: 12/15/22 13:01 Temperature 96.8 F L Temperature Source Temporal Pulse Rate 121 H Respiratory Rate 18 Blood Pressure 123/81 H Blood Pressure Mean 95 Pulse Ox 99 Oxygen Delivery Method Room Air Positive well nourished, well developed and unkempt General Appearance ED: unkempt, well developed and NAD HEENT Reports moist mucous membranes Neck supple and no JVD Back/Spine Back/Spine Narrative: There is tenderness and spasm of the lower lumbar paraspinal muscles. There is tenderness over the right sciatic notch. There is tenderness over the right gluteal area. There is no midline tenderness. There is no bony crepitance or step-off. There is no edema or ecchymosis. Range of motion was limited in all motions of the lumbar spine secondary to pain. Strength is 5/5 bilaterally in the lower extremities. There are no sensory deficits noted. Lumbar Spine / Lower Back: ROM limited Neuro oriented x3 and no sensory deficits noted Sensorium / Orientation: alert Motor Exam: strength 5/5 throughout Psych mental status grossly normal Appearance: unkempt MDM MDM MDM Narrative Medical decision making narrative: Patient was advised that this is most likely a muscular strain causing sciatica. Patient was given a dose of Toradol and morphine here. Patient was given prescriptions for Naprosyn and Flexeril. Patient was instructed to use ice to the area. Patient was instructed to follow-up with her primary care physician in 5 to 7 days. Patient understood and was agreeable with the plan. All questions were answered. Discharge Plan Triage Chief Complaint: Back ED Provider: Rahul Nicholson Dx/Rx/DC Orders Clinical Impression: Acute lumbosacral myofascial strain, Sciatica of right side Instructions: ED Sciatica Prescriptions: New cyclobenzaprine [cyclobenzaprine] 10 mg tablet 10 mg PO QHS PRN PRN (Reason: Muscle Spasm) Qty: 10 0RF Changed naproxen 500 mg tablet 500 mg PO BID PRN PRN (Reason: pain) Qty: 20 0RF Discontinued cyclobenzaprine 5 mg tablet 5 mg PO TID PRN (Reason: muscle spasm) Qty: 30 0RF No Action naproxen 250 mg tablet 500 mg PO Q8H PRN PRN (Reason: Mild Pain ) Qty: 30 0RF Primary Care Provider: Care Physician,No Primary Referrals: David Lake MD [Med Staff - Funeral Home Director] - 5-7 Days Care Physician,No Primary [Primary Care Provider] - Disposition Disposition: Home, Self Care
[2022-12-15] MEDS: Morphine 4 MG/ML Syringe IM (14:03)
[2022-12-15] MEDS: Ketorolac 60 MG/2 ML Vial IM (14:03)
== END 2022-12-15 14:33 | disposition home or self-care (01) ==
PROVIDERS: Emergency Provider Emergency Medicine; Visit Provider Emergency Medicine
DX: S39.012A Strain of muscle, fascia and tendon of lower back, initial encounter (principal); M54.31 Sciatica, right side; F17.290 Nicotine dependence, other tobacco product, uncomplicated
CPT/HCPCS: 96372; 99282

== ENCOUNTER → 2022-12-18 | Outpatient (CLI) | payer MEDICAID, SELFPAY ==
--- NOTE | 2022-12-18 10:05 | RAD_ITS ---
STUDY: X-RAY - LUMBAR SPINE REASON FOR EXAM: Female, 31 years old. Back pain. TECHNIQUE: 5 view(s) of the lumbar spine were obtained. COMPARISON: None FINDINGS: Normal lumbar lordosis. There is no substantial scoliosis. There is a normal alignment of the vertebrae. Mild lower thoracic and lumbosacral facet sclerosis. Mild intervertebral disc space narrowing at L5-S1 with osteophytes. The soft tissue structures are unremarkable. RAD/L/S Spine Min 4 Views IMPRESSION: Lumbosacral spondylosis most marked at L5-S1. No acute abnormality/erosive changes. Electronically Signed: Herman Juarez, at 13:23 EDT ,
== END | disposition home or self-care (01) ==
PROVIDERS: PCP Family Medicine; Referring Provider Family Medicine; Visit Provider Family Medicine
DX: M54.40 Lumbago with sciatica, unspecified side (principal)
CPT/HCPCS: 72110